=== PATIENT | male | born 1950 | race African-American/Black ===

== ENCOUNTER 2023-06-17 11:52 | Inpatient (IN) ==
--- NOTE | 2023-06-17 12:10 | Emergency Department Note ---
Impression & Plan UTI (urinary tract infection), Weakness, D-dimer, elevated ED Provider Note NAME: HANS [id number] JUAN AGE: 73 SEX: M : 1950 ARRIVES VIA: Ambulance INFORMANT: Patient ED PROVIDER(S): Donaldo Mendes DO CHIEF COMPLAINT: Chest pain HPI: Patient is a 73-year-old male who presents to the ER for chest pain which started in the left upper chest wall. Pain started this morning around 8 AM. Its only present with breathing. If he is not breathing he has no pain he also worsens when he pushes on it. He admits to a little bit of a runny nose. Denies any cough or congestion. No dysuria, urgency, or frequency. No other exacerbating or remitting factors. Patient was brought in by EMS and given aspirin and fluids as his blood pressures was a little low. ADDITIONAL HISTORY OBTAINED: Per HPI Chronic Medical/Social Conditions Affecting Care: Per HPI PAST MEDICAL HISTORY:See Below PAST SURGICAL HISTORY:See Below FAMILY HISTORY:See Below SOCIAL HISTORY:See Below HOME MEDICATIONS:See Below ALLERGIES:See Below VITALS:See Below PHYSICAL EXAMINATION: GENERAL: Sitting up in bed, alert, well appearing, well nourished, no distress, non-toxic EYE EXAM: normal conjunctiva. PERRL and EOM's grossly intact. OROPHARYNX: mucous membranes are moist NECK: supple, no nuchal rigidity, no adenopathy, non-tender CHEST: Reproducible left upper anterior chest wall pain just left of the sternum LUNGS: Clear to auscultation. Normal chest wall mechanics HEART: no murmurs, S1 normal and S2 normal ABDOMEN: abdomen soft, non-tender, normo-active bowel sounds, no masses, no rebound or guarding. UPPER EXTREMITIES: upper extremities are grossly normal. LOWER EXTREMITIES: No pitting edema. NEURO EXAM: Normal sensorium, cranial nerves II-XII grossly intact, normal speech, no gross weakness of arms, no gross weakness of legs. MEDICAL DECISION MAKING: Patient is a 73-year-old male who presents ER for the above-stated complaint. IV was established blood work was obtained. Additional history provided by EMS notes that he was complaining of chest pain. Labs show leukocytosis of 11,000. No significant anemia. D-dimer was elevated at 1000 as he had a pleuritic. BMP with slightly low CO2 at 20. Mag was low at 1.4. Troponin negative. Pro-Gigi elevated at 3. UA consistent with UTI. Viral panel was negative. Chest x-ray was unremarkable. He was given IV Rocephin. He was given IV fluids. Prior to arrival he was hypotensive in the 80s per EMS multiple times. This responded to IV fluids. CT angio was pending upon admission but per my review showed no obvious large central PEs. Patient's pressures rebounded with the fluids. He was discussed with the hospitalist for further evaluation of his UTI likely causing hypotension and reproducible chest pain. Consults/Care Managements Discussions: Per [facility] Triage Nursing notes reviewed. Limited review of prior medical records performed Vital Signs: reviewed and remarkable for fever Differential diagnosis: Differential diagnosis includes etiologies such as sepsis, UTI, pneumonia, metabolic, electrolyte abnormalities, cardiac sources, intracerebral event, toxicologic, neurological, as well as others were entertained. ER treatment provided: See below Diagnostics interpreted by me include EKG and cardiac monitoring as listed below: -Cardiac Monitoring: An order was placed for continuous cardiac monitoring. The monitor shows a rate of 80 with sinus rhythm. -ECG: Sinus rhythm rate 93 Normal axis No PVCs QTc 400 -Laboratory studies:Interpreted by me as stated above in MDM and shown below. Imaging studies: Xrays: As interpreted by me: Portable AP upright 1 view of the chest shows no focal CTs show: Per radiology Procedures: None Critical Care: None Past Med/Surg History Medical History Back pain Hepatitis C Dyslipidemia Asthma Cirrhosis of liver Arthritis Surgical History History of biopsy (03/30/21) Full-thickness incisional wedge skin biopsy was performed at bedside Dr. Reaves 03/30/2021 Status post total knee replacement Previous back surgery Family History Mother Cancer Social History Smoking Status: Current some day smoker Tobacco Type: E-cigarettes / Vaping Hx Alcohol Use: No Hx Substance Use: No Preferred Language: Chinese Communication Ability: Effective Beliefs That Will Affect Care: None Current Living Situation: Other Current Living Situation Comment: Longterm Feels Safe at Home: Yes Assistive Devices: Wheelchair Allergies Allergies Allergy/AdvReac Type Severity Reaction Status Date / Time pork derived (porcine) Allergy Unknown Unknown Verified 03/30/21 13:03 Pork/Porcine Containing Allergy Unknown ON SCI Verified 03/30/21 13:03 Products [facility] TW MED LIST Home Meds Home Medications Medication Instructions Recorded Confirmed cholecalciferol (vitamin D3) 25 1,000 unit PO DAILY 02/08/19 06/17/23 mcg (1,000 unit) chewable tablet gemfibrozil 600 mg tablet 600 mg PO BID 02/08/19 06/17/23 montelukast 10 mg tablet 10 mg PO HS 02/08/19 06/17/23 (Singulair) albuterol sulfate 90 mcg/actuation 2 puff inhalation Q6H PRN 03/30/21 06/17/23 aerosol inhaler Shortness Of Breath ciclesonide 160 mcg/actuation 2 puff inhalation BID 03/30/21 06/17/23 aerosol inhaler (Alvesco) lidocaine-prilocaine 2.5 %-2.5 % 2.5 g topical BID 03/30/21 06/17/23 topical cream escitalopram oxalate 5 mg tablet 5 mg PO DAILY 06/17/23 06/17/23 hydroxyzine pamoate 50 mg capsule 50 mg PO DAILY 06/17/23 06/17/23 ketotifen fumarate 0.025 % (0.035 1 drp ophthalmic (eye) Q8H PRN Eye 06/17/23 06/17/23 %) eye drops (Zaditor) Irritation ropinirole 1 mg tablet 1 mg PO HS 06/17/23 06/17/23 Results & Data (ED) Vital Signs Vital Signs - 24 hr 06/17/23 12:03 06/17/23 12:06 06/17/23 12:12 Temperature 38.2 C H Temperature Source Oral Pulse Rate 92 H 92 H Pulse Rate [Apical] Respiratory Rate 16 Blood Pressure 120/76 Blood Pressure [Left Arm] Blood Pressure Mean 90 Blood Pressure Mean [Left Arm] Pulse Oximetry 91 91 Oxygen Delivery Method Room Air Room Air Oxygen Flow Rate 0 Sepsis Recent Fever Within 48 Hours Yes Sepsis New/Unexplained Change in Mental Status No Sepsis Action Taken by Nursing No Action Required 06/17/23 12:16 06/17/23 13:56 06/17/23 14:47 Temperature Temperature Source Pulse Rate Pulse Rate [Apical] 88 82 81 Respiratory Rate 16 20 20 Blood Pressure Blood Pressure [Left Arm] 130/72 135/68 Blood Pressure Mean Blood Pressure Mean [Left Arm] 91 90 Pulse Oximetry 93 90 91 Oxygen Delivery Method Nasal Cannula Oxygen Flow Rate 2 Sepsis Recent Fever Within 48 Hours Sepsis New/Unexplained Change in Mental Status Sepsis Action Taken by Nursing Laboratory Data 06/17/23 12:05 06/17/23 12:57 Lab Results 06/17/23 06/17/23 06/17/23 Range/Units 12:03 12:05 12:32 WBC 11.41 H (4.8-10.8) K/ul RBC 4.45 L (4.70-6.10) M/uL Hgb 13.8 L (14.0-18.0) g/dl Hct 40.5 L (42.0-52.0) % MCV 91.0 (80.0-100.0) fL MCH 31.0 (25.0-34.0) pg MCHC 34.1 (32.0-36.0) g/dL RDW Std Deviation 41.5 (36.4-46.3) fL RDW Coeff of Mel 12.4 (11.5-14.5) % Plt Count 162 (130-400) K/uL MPV 10.9 (9.4-12.4) fL Immature Gran % (Auto) 0.4 % Neut % (Auto) 88.5 % Lymph % (Auto) 8.6 % [place] % (Auto) 2.0 % Eos % (Auto) 0.3 % Baso % (Auto) 0.2 % Neut # (Auto) 10.10 H (1.40-6.50) K/uL Lymph # (Auto) 0.98 L (1.20-3.40) K/uL [place] # (Auto) 0.23 (0.11-0.59) K/uL Eos # (Auto) 0.03 (0.00-0.50) K/uL Baso # (Auto) 0.02 (0.00-0.20) K/uL Immature Gran # (Auto) 0.05 (0.01-0.20) K/uL D-Dimer Cancelled Sodium TNP Potassium TNP Chloride 106 (98-107) mmol/L Carbon Dioxide 20 L (21-32) mmol/L Anion Gap TNP BUN 14 (6-23) mg/dl Creatinine 0.61 (0.6-1.4) mg/dl Est Cr Clr Drug Dosing 141.9 ml/min Est GFR ( Amer) 114.8 ml/min Est GFR (Non-Af Amer) 99.1 ml/min BUN/Creatinine Ratio 23.0 H (10-20) Glucose 87 (70-99(Fasting)) mg/dl Lactate 1.9 (0.4-2.0) mmol/L Calcium 8.4 L (8.6-10.3) mg/dl Magnesium TNP Total Bilirubin 0.7 (0.2-1.0) mg/dl Direct Bilirubin TNP AST TNP ALT 29 (7-52) U/L Alkaline Phosphatase 30 L (34-104) U/L Troponin I High Sens 13.9 (0-20) pg/ml Total Protein 7.1 (6.0-8.3) gm/dl Albumin 3.9 (3.4-5.0) gm/dl Procalcitonin Cancelled Urine Color Urine Appearance (Clear) Urine pH (4.5-7.5) Ur Specific [place] (1.000-1.030) Urine Protein (Negative) Urine Glucose (UA) (Negative) Urine Ketones (Negative) Urine Blood (Negative) Urine Nitrite (Negative) Urine Bilirubin (Negative) Urine Urobilinogen (Negative) Ur Leukocyte Esterase (Negative) Urine WBC (Auto) (0-5) /hpf Urine RBC (Auto) (0-2) /hpf U Hyaline Cast (Auto) (0-2) /lpf U Epithel Cells (Auto) (0-2) /hpf Urine Bacteria (Auto) (None Seen) Adenovirus (PCR) Not Detected (NotDetected) B. pertussis DNA (PCR) Not Detected (NotDetected) B.parapertussis DNA PCR Not Detected (NotDetected) C. pneumoniae DNA (PCR) Not Detected (NotDetected) Coronavirus OC43 (PCR) Not Detected (NotDetected) Coronavirus HKU1 (PCR) Not Detected (NotDetected) Coronavirus 229E (PCR) Not Detected (NotDetected) SARS-CoV-2 (PCR) Not Detected (NotDetected) Coronavirus NL63 (PCR) Not Detected (NotDetected) Human Metapneumovir PCR Not Detected (NotDetected) Influenza Type A (PCR) Not Detected (NotDetected) Influenza Type B (PCR) Not Detected (NotDetected) M. pneumoniae (PCR) Not Detected (NotDetected) Parainfluenza 1 (PCR) Not Detected (NotDetected) Parainfluenza 2 (PCR) Not Detected (NotDetected) Parainfluenza 3 (PCR) Not Detected (NotDetected) Parainfluenza 4 (PCR) Not Detected (NotDetected) RSV (PCR) Not Detected (NotDetected) Entero/Rhino (PCR) Not Detected (NotDetected) 06/17/23 06/17/23 06/17/23 Range/Units 12:57 13:03 13:55 WBC (4.8-10.8) K/ul RBC (4.70-6.10) M/uL Hgb (14.0-18.0) g/dl Hct (42.0-52.0) % MCV (80.0-100.0) fL MCH (25.0-34.0) pg MCHC (32.0-36.0) g/dL RDW Std Deviation (36.4-46.3) fL RDW Coeff of Mel (11.5-14.5) % Plt Count (130-400) K/uL MPV (9.4-12.4) fL Immature Gran % (Auto) % Neut % (Auto) % Lymph % (Auto) % [place] % (Auto) % Eos % (Auto) % Baso % (Auto) % Neut # (Auto) (1.40-6.50) K/uL Lymph # (Auto) (1.20-3.40) K/uL [place] # (Auto) (0.11-0.59) K/uL Eos # (Auto) (0.00-0.50) K/uL Baso # (Auto) (0.00-0.20) K/uL Immature Gran # (Auto) (0.01-0.20) K/uL D-Dimer 1050 H* Sodium 137 Potassium 4.5 Chloride (98-107) mmol/L Carbon Dioxide (21-32) mmol/L Anion Gap BUN (6-23) mg/dl Creatinine (0.6-1.4) mg/dl Est Cr Clr Drug Dosing ml/min Est GFR ( Amer) ml/min Est GFR (Non-Af Amer) ml/min BUN/Creatinine Ratio (10-20) Glucose (70-99(Fasting)) mg/dl Lactate (0.4-2.0) mmol/L Calcium (8.6-10.3) mg/dl Magnesium 1.4 L Total Bilirubin (0.2-1.0) mg/dl Direct Bilirubin 0.1 AST 24 ALT (7-52) U/L Alkaline Phosphatase (34-104) U/L Troponin I High Sens (0-20) pg/ml Total Protein (6.0-8.3) gm/dl Albumin (3.4-5.0) gm/dl Procalcitonin 3.12 H Urine Color Yellow Urine Appearance Clear (Clear) Urine pH 7.0 (4.5-7.5) Ur Specific [place] 1.009 (1.000-1.030) Urine Protein Negative (Negative) Urine Glucose (UA) Negative (Negative) Urine Ketones Negative (Negative) Urine Blood Negative (Negative) Urine Nitrite Negative (Negative) Urine Bilirubin Negative (Negative) Urine Urobilinogen Negative (Negative) Ur Leukocyte Esterase 2+ H (Negative) Urine WBC (Auto) 21-50 H (0-5) /hpf Urine RBC (Auto) 0-2 (0-2) /hpf U Hyaline Cast (Auto) 0-2 (0-2) /lpf U Epithel Cells (Auto) 0-2 (0-2) /hpf Urine Bacteria (Auto) 4+ H (None Seen) Adenovirus (PCR) (NotDetected) B. pertussis DNA (PCR) (NotDetected) B.parapertussis DNA PCR (NotDetected) C. pneumoniae DNA (PCR) (NotDetected) Coronavirus OC43 (PCR) (NotDetected) Coronavirus HKU1 (PCR) (NotDetected) Coronavirus 229E (PCR) (NotDetected) SARS-CoV-2 (PCR) (NotDetected) Coronavirus NL63 (PCR) (NotDetected) Human Metapneumovir PCR (NotDetected) Influenza Type A (PCR) (NotDetected) Influenza Type B (PCR) (NotDetected) M. pneumoniae (PCR) (NotDetected) Parainfluenza 1 (PCR) (NotDetected) Parainfluenza 2 (PCR) (NotDetected) Parainfluenza 3 (PCR) (NotDetected) Parainfluenza 4 (PCR) (NotDetected) RSV (PCR) (NotDetected) Entero/Rhino (PCR) (NotDetected) Administered Medications Discontinued Medications Acetaminophen (Acetaminophen 325 Mg Tab) 650 mg PO NOW STA Stop: 06/17/23 15:05 Last Admin: 06/17/23 15:37 Dose: 650 mg Documented By: CARLEE Sodium Chloride (Nss) 1,000 mls @ 999 mls/hr IV .Q1H1M ONE Stop: 06/17/23 13:09 Last Infusion: 06/17/23 16:17 Dose: Infused Documented By: Admin: 06/17/23 12:15 Dose: 999 mls/hr Documented By: KV Ioversol (Optiray 320 125ml) 117 ml IV ONCE ONE Stop: 06/17/23 16:46 Last Admin: 06/17/23 16:45 Dose: 117 ml Documented By: SKYLER Imaging Data Radiologist's Impression: Chest X-Ray 06/17/23 12:03 XR chest 1V portable CLINICAL HISTORY: Sepsis TECHNIQUE: Single frontal radiograph of the chest was obtained. Comparison: Comparison is made to chest radiograph 02/09/2022 FINDINGS: No lines and tubes are seen. The cardiomediastinal silhouette is normal. Elevation of the right hemidiaphragm is seen. No evidence of pleural effusion or pneumothorax. IMPRESSION: No acute chest disease. ACT 112: Negative or not required by law. Electronically signed by: Mark Bansal M.D. 06/17/2023 1:04 PM Discharge Plan Visit Data Chief Complaint: Cardiac Assessment Stated Complaint: CHEST PAIN/HYPOTENSIVE ED Provider: Donaldo Mendes Discharge Problem: UTI (urinary tract infection), Weakness, D-dimer, elevated Forms Stand Alone Forms: [facility] Prescriptions Prescriptions: No Action albuterol sulfate 90 mcg/actuation HFA aerosol inhaler 2 puff inhalation Q6H PRN (Reason: Shortness Of Breath) lidocaine-prilocaine 2.5-2.5 % cream 2.5 g topical BID Alvesco 160 mcg/actuation HFA aerosol inhaler 2 puff inhalation BID gemfibrozil 600 mg Tablet 600 mg PO BID montelukast [Singulair] 10 mg Tablet 10 mg PO HS cholecalciferol (vitamin D3) 1,000 unit Tablet,Chewable 1,000 unit PO DAILY escitalopram oxalate 5 mg Tablet 5 mg PO DAILY ropinirole 1 mg Tablet 1 mg PO HS Rx Instructions: administer 1-3 hours before bedtime ketotifen fumarate [Zaditor] 0.025 % (0.035 %) Drops 1 drp OPHTHALMIC (EYE) Q8H PRN (Reason: Eye Irritation) Rx Instructions: do not exceed 2 doses in a 24 hour period hydroxyzine pamoate 50 mg Capsule 50 mg PO DAILY Referrals Referrals: Brayden BACK [Primary Care Provider] - Discharge Problem: UTI (urinary tract infection) Qualifiers: Urinary tract infection type: site unspecified Hematuria presence: without hematuria Qualified Code(s): N39.0 - Urinary tract infection, site not specified
[2023-06-17] MEDS: SODIUM CHLORIDE 0.9% 1,000 ML IV ONE ×2 (12:15→17:04)
[2023-06-17 12:37] LABS: Basophils # (auto) 0.02 K/uL (0.00-0.20); Basophils % (auto) 0.2 %; Eosinophils # (auto) 0.03 K/uL (0.00-0.50); Eosinophils % (auto) 0.3 %; Hematocrit (blood only) 40.5 % (42.0-52.0); Hemoglobin 13.8 g/dl (14.0-18.0); Immature Granulocytes # (auto) 0.05 K/uL (0.01-0.20); Immature Granulocytes % (auto) 0.4 %; Lymphocytes # (auto) 0.98 K/uL (1.20-3.40); Lymphocytes % (auto) 8.6 %; Mean Corpuscular Hgb Conc 34.1 g/dL (32.0-36.0); Mean Platelet Volume 10.9 fL (9.4-12.4); Monocytes # (auto) 0.23 K/uL (0.11-0.59); Neutrophils % (auto) 88.5 %; Platelet Count 162 K/uL (130-400); RDW Coefficient of Variation 12.4 % (11.5-14.5); RDW Standard Deviation 41.5 fL (36.4-46.3); Red Blood Count 4.45 M/uL (4.70-6.10); White Blood Count 11.41 K/ul (4.8-10.8)
[2023-06-17 12:52] LABS: Alanine Aminotransferase 29 U/L (7-52); Albumin Level 3.9 gm/dl (3.4-5.0); Alkaline Phosphatase 30 U/L (34-104); Bilirubin,Total 0.7 mg/dl (0.2-1.0); Blood Urea Nitrogen 14 mg/dl (6-23); Calcium 8.4 mg/dl (8.6-10.3); Carbon Dioxide 20 mmol/L (21-32); Chloride 106 mmol/L (98-107); Creatinine Clr Calc Pharmacy 141.9 ml/min; Est GFR (African American) 114.8 ml/min; Est GFR (Non-African American) 99.1 ml/min; Glucose 87 mg/dl (70-99(Fasting)); Total Protein 7.1 gm/dl (6.0-8.3)
[2023-06-17 12:54] LABS: Troponin I High Sensitivity 13.9 pg/ml (0-20)
--- NOTE | 2023-06-17 13:05 | XRay Report ---
XR chest 1V portable CLINICAL HISTORY: Sepsis TECHNIQUE: Single frontal radiograph of the chest was obtained. Comparison: Comparison is made to chest radiograph 02/09/2022 FINDINGS: No lines and tubes are seen. The cardiomediastinal silhouette is normal. Elevation of the right hemid iaphragm is seen. No evidence of pleural effusion or pneumothorax. IMPRESSION: No acute chest disease. ACT 112: Negative or not required by law. Electronically signed by: Mark Bansal M.D. 06/17/2023 1:04 PM
[2023-06-17 13:14] LABS: Adenovirus PCR Not Detected (NotDetected); Bordetella parapertussis PCR Not Detected (NotDetected); Bordetella pertussis PCR Not Detected (NotDetected); Chlamydia pneumoniae PCR Not Detected (NotDetected); Coronavirus 229E PCR Not Detected (NotDetected); Coronavirus CoV-2 (COVID19)PCR Not Detected (NotDetected); Coronavirus HKU1 PCR Not Detected (NotDetected); Coronavirus NL63 PCR Not Detected (NotDetected); Coronavirus OC43PCR Not Detected (NotDetected); Human Metapneumovirus PCR Not Detected (NotDetected); Influenza A PCR Not Detected (NotDetected); Influenza B PCR Not Detected (NotDetected); Mycoplasma pneumoniae PCR Not Detected (NotDetected); Parainfluenza Virus 1 PCR Not Detected (NotDetected); Parainfluenza Virus 2 PCR Not Detected (NotDetected); Parainfluenza Virus 3 PCR Not Detected (NotDetected); Parainfluenza Virus 4 PCR Not Detected (NotDetected); Respiratory Syncytial VirusPCR Not Detected (NotDetected); Rhinovirus/Enterovirus PCR Not Detected (NotDetected)
[2023-06-17 13:48] LABS: Bilirubin Direct 0.1 mg/dl (0-0.2); Magnesium 1.4 mg/dl (1.7-2.4); Potassium 4.5 mmol/L (3.5-5.1)
[2023-06-17 13:57] LABS: D Dimer 1050 ug/L FEU (0-500)
[2023-06-17 14:17] LABS: Appearance Urine Clear (Clear); Bacteria Urine Automated 4+ (None Seen); Bilirubin Urine Negative (Negative); Blood Urine Negative (Negative); Cast Urine Automated 0-2 /lpf (0-2); Color Urine Yellow; Epithelial Cell Urine Auto 0-2 /hpf (0-2); Glucose Urine UA Negative (Negative); Ketones Urine Negative (Negative); Leukocyte Esterase Urine 2+ (Negative); Nitrite Urine Negative (Negative); Protein Urine Negative (Negative); RBC Urine Automated 0-2 /hpf (0-2); Specific Gravity Urine 1.009 (1.000-1.030); Urobilinogen Urine Negative (Negative); WBC Urine Automated 21-50 /hpf (0-5)
[2023-06-17] MEDS: ACETAMINOPHEN 325 MG TAB PO STA (15:37)
--- NOTE | 2023-06-17 16:26 | History & Physical Report ---
Date of Service June 17, 2023 Assessment & Plan (1) Sepsis: (2) UTI (urinary tract infection): (3) Chest pain: Plan: This is a 73 year old M who is incarcerated at [facility] with hx of Seizure d/o, asthma, cirrhosis of liver, hepatitis C, HLD who presents to ED 2/2 chest pain that started this morning. Sepsis UTI Admit to PCU Patient met sepsis criteria in setting of fever and tachycardia , T max 38.2 blood and urine cultures were obtained Initially patient was hypotensive with EMS, but has been normotensive since arrival Lactic acid normal, procalcitonin elevated at 3 He received broad-spectrum IV Rocephin in ED Continue 2 g Rocephin daily Await blood and urine cultures continue IVF for additional 1 L Chest pain His presenting complaints to hospital is chest pain It is reproducible, possible MSK vs Anxiety Initial troponin unremarkable, EKG without ST change Elevated D-dimer, chest CTA pending High risk for PE as he is mostly wheelchair-bound will repeat trop, cycle PTSD Anxiety Continue escitalopram and hydroxyzine Patient states he has had inceased in anx/PTSD and he has been receiving treatment for this, he does tend to get chest pain with anxiety continue current meds low threshold for psych consult Asthma no acute exac continue inhaler Hypomagnesemia mag 1.4 replace DVT ppx: SQ Lovenox Dispo: PCU FULL CODE PCP: Hamzah BACK Pt was seen and examined in collaboration with Dr. Fuentes, please see addendum A total of 76 minutes was spent coordinating, documenting, and providing care for this patient excluding time spent in the performance of separately billed services. This included personally viewing all current laboratories and imaging studies, medication reconciliation, outpatient chart review, and discussion with specialists. History of Present Illness Chief Complaint: Chest pain Primary Care Provider: NAZANIN Hamzah This is a 73 year old M who is incarcerated at [facility] with hx of Seizure d/o, asthma, cirrhosis of liver, hepatitis C, HLD who presents to ED 2/2 chest pain that started this morning. His pain is substernal, nonradiating, worse with inspiration and made better with resting. He has hx of anxiety/PTSD which is currently much worse and he is being treated for this in the facility and he does get chest pain with that. He feels this is a different kind of chest pain. He also c/o feeling chilled and aches all over this morning. He also complains of increased urinary frequency and urgency. He denies any documented fever, URI symptoms, cough, hemoptysis, nausea, vomiting, abdominal pain, hematuria, melena or hematochezia, dysuria. He does state that he had a UTI approximately 3 years ago and at that time he had dysuria and urgency. He denied any chest pain with this. His appetite has otherwise been stable. According to ED provider patient was hypotensive upon EMS arrival. He was resuscitated with fluid boluses. Upon my evaluation he was hemodynamically stable. He did meet sepsis criteria secondary to fever and tachycardia. Blood and urine cultures were obtained. He did receive IV fluids and IV vancomycin. He did have elevated D-dimer and therefore CTA was ordered. Allergies Allergy/AdvReac Type Severity Reaction Status Date / Time pork derived (porcine) Allergy Unknown Unknown Verified 03/30/21 13:03 Pork/Porcine Containing Allergy Unknown ON SCI Verified 03/30/21 13:03 Products [facility] MED LIST No Known Drug Allergies Allergy Unknown Unverified 06/17/23 16:53 Home Medications Medication Instructions Recorded Confirmed Type cholecalciferol (vitamin D3) 25 1,000 unit PO DAILY 02/08/19 06/17/23 History mcg (1,000 unit) chewable tablet gemfibrozil 600 mg tablet 600 mg PO BID 02/08/19 06/17/23 History montelukast 10 mg tablet 10 mg PO HS 02/08/19 06/17/23 History (Singulair) albuterol sulfate 90 mcg/actuation 2 puff inhalation Q6H PRN 03/30/21 06/17/23 History aerosol inhaler Shortness Of Breath ciclesonide 160 mcg/actuation 2 puff inhalation BID 03/30/21 06/17/23 History aerosol inhaler (Alvesco) lidocaine-prilocaine 2.5 %-2.5 % 2.5 g topical BID 03/30/21 06/17/23 History topical cream escitalopram oxalate 5 mg tablet 5 mg PO DAILY 06/17/23 06/17/23 History hydroxyzine pamoate 50 mg capsule 50 mg PO DAILY 06/17/23 06/17/23 History ketotifen fumarate 0.025 % (0.035 1 drp ophthalmic (eye) Q8H PRN Eye 06/17/23 06/17/23 History %) eye drops (Zaditor) Irritation ropinirole 1 mg tablet 1 mg PO HS 06/17/23 06/17/23 History Past Med/Surg History Medical History Back pain Hepatitis C Dyslipidemia Asthma Cirrhosis of liver Arthritis Surgical History History of biopsy (03/30/21) Full-thickness incisional wedge skin biopsy was performed at bedside Dr. Reaves 03/30/2021 Status post total knee replacement Previous back surgery Family History Mother Cancer Social History Smoking Status: Current some day smoker Tobacco Type: Cigarettes and E-cigarettes / Vaping Second Hand Exposure: No; Do You Dip or Chew Tobacco: No; Tobacco Cessation Education Requested by Patient: No Hx Alcohol Use: No Hx Substance Use: No Preferred Language: Ivorian Communication Ability: Effective Parking Worker Required: No Beliefs That Will Affect Care: Spiritual Current Living Situation: Other Current Living Situation Comment: [facility] Other Information That Helps Us Care for You: No Feels Safe at Home: Yes Assistive Devices: Denture - Upper, Denture - Lower, Glasses, Walker and Wheelchair Assistive Devices Comment: All left at [facility] Review of Systems Review of Systems: All systems reviewed & are unremarkable except as noted in HPI & below Physical Exam Physical Exam: Constitutional: WD/WN, Male, vitals as above, NAD, sitting up in bed, pleasant, conversing easily Head: Normocephalic, Atraumatic Eyes: PERRL, conjunctivae normal, anicteric sclerae ENMT: external ear and nose normal, oropharynx normal Neck: trachea midline, no thyromegaly normal visual inspection Respiratory: normal respiratory effort, lungs clear to auscultation, no wheeze, rales, rhonchi. Normal insp/exp effort, no accessory muscle use Cardiovascular: RRR, no murmur, no edema Vessels: no JVD or carotid bruit Chest: normal inspection of chest Abdomen: normal bowel sounds, soft, nontender, no hepatosplenomegaly Musculoskeletal: no cyanosis or clubbing, extremities motor strength 5/5 Skin: no rashes, warm and dry normal turgor Neurologic: PERRL, EOMI, accommodation nl, no face palsy, no dysarthria CN's II-XI intact bilaterally and moves all extremities Psychiatric: A+Ox3, euthymic affect Lymphatic: no cervical or axillary lymphadenopathy : deferred Results & Data Results & Data Vital Signs (Past 12 Hours) Vital Signs Temp Pulse Pulse Resp BP BP Pulse Ox 06/17/23 14:47 81 20 135/68 91 06/17/23 13:56 82 20 130/72 90 06/17/23 12:16 88 16 93 06/17/23 12:12 91 06/17/23 12:06 38.2 C H 92 H 16 120/76 91 06/17/23 12:03 92 H O2 Del Method O2 Flow Rate 06/17/23 14:47 06/17/23 13:56 06/17/23 12:16 Nasal Cannula 2 06/17/23 12:12 Room Air 0 06/17/23 12:06 Room Air 06/17/23 12:03 Diagnostic Findings Chest X-Ray 06/17/23 12:03 XR chest 1V portable CLINICAL HISTORY: Sepsis TECHNIQUE: Single frontal radiograph of the chest was obtained. Comparison: Comparison is made to chest radiograph 02/09/2022 FINDINGS: No lines and tubes are seen. The cardiomediastinal silhouette is normal. Elevation of the right hemidiaphragm is seen. No evidence of pleural effusion or pneumothorax. IMPRESSION: No acute chest disease. ACT 112: Negative or not required by law. Electronically signed by: Mark Bansal M.D. 06/17/2023 1:04 PM Medications Administered Medication List Discontinued Medications Acetaminophen (Acetaminophen 325 Mg Tab) 650 mg PO NOW STA Stop: 06/17/23 15:05 Last Admin: 06/17/23 15:37 Dose: 650 mg Documented By: CARLEE Sodium Chloride (Nss) 1,000 mls @ 999 mls/hr IV .Q1H1M ONE Stop: 06/17/23 13:09 Last Infusion: 06/17/23 16:17 Dose: Infused Documented By: Admin: 06/17/23 12:15 Dose: 999 mls/hr Documented By: JULIA Sodium Chloride (Nss) 1,000 mls @ 999 mls/hr IV .Q1H1M ONE Stop: 06/17/23 16:04 Last Admin: 06/17/23 17:04 Dose: 999 mls/hr Documented By: CARLEE Ceftriaxone Sodium (Rocephin) 2,000 mg in 50 mls @ 100 mls/hr IV NOW STA Stop: 06/17/23 15:33 Last Admin: 06/17/23 17:03 Dose: 100 mls/hr Documented By: CARLEE Ioversol (Optiray 320 125ml) 117 ml IV ONCE ONE Stop: 06/17/23 16:46 Last Admin: 06/17/23 16:45 Dose: 117 ml Documented By: SKYLER ECG Rate (beats per minute): 93 Rhythm: normal sinus Additional Comments: I have independently reviewed and interpreted patient's admitting EKG which revealed: 93 NSR, RBBB, no st t wave change COVID-19 Results Results COVID-19 Adm Lab Results: RBC 4.45 M/uL (4.70-6.10) L 06/17/23 WBC 11.41 K/ul (4.8-10.8) H 06/17/23 Hgb 13.8 g/dl (14.0-18.0) L 06/17/23 Hct 40.5 % (42.0-52.0) L 06/17/23 Plt Count 162 K/uL (130-400) 06/17/23 Neutrophils (%) (Auto) 88.5 % 06/17/23 Lymphocytes (%) (Auto) 8.6 % 06/17/23 Monocytes # (Auto) 0.23 K/uL (0.11-0.59) 06/17/23 Eosinophils # (Auto) 0.03 K/uL (0.00-0.50) 06/17/23 Immature Granulocyte % (Auto) 0.4 % 06/17/23 Neutrophils # (Auto) 10.10 K/uL (1.40-6.50) H 06/17/23 Lymphocytes # (Auto) 0.98 K/uL (1.20-3.40) L 06/17/23 Monocytes # (Auto) 0.23 K/uL (0.11-0.59) 06/17/23 Eosinophils # (Auto) 0.03 K/uL (0.00-0.50) 06/17/23 Basophils # (Auto) 0.02 K/uL (0.00-0.20) 06/17/23 Immature Granulocyte # (Auto) 0.05 K/uL (0.01-0.20) 4 Na 137 mmol/L (136-145) 06/17/23 K 4.5 mmol/L (3.5-5.1) 06/17/23 Cl 106 mmol/L (98-107) 06/17/23 CO2 20 mmol/L (21-32) L 06/17/23 Anion Gap TNP 06/17/23 BUN 14 mg/dl (6-23) 06/17/23 Creatinine 0.61 mg/dl (0.6-1.4) 06/17/23 BUN/Creatinine Ratio 23.0 (10-20) H 06/17/23 Glucose Level 87 mg/dl (70-99(Fasting)) 06/17/23 Ca 8.4 mg/dl (8.6-10.3) L 06/17/23 Total Bilirubin 0.7 mg/dl (0.2-1.0) 06/17/23 Direct Bilirubin 0.1 mg/dl (0-0.2) 06/17/23 AST/SGOT 24 U/L (13-39) 06/17/23 ALT/SGPT 29 U/L (7-52) 06/17/23 Alkaline Phosphatase 30 U/L (34-104) L 06/17/23 Total Protein 7.1 gm/dl (6.0-8.3) 06/17/23 Albumin 3.9 gm/dl (3.4-5.0) 06/17/23 Procalcitonin 3.12 ng/ml (0-0.5) H 06/17/23 D-Dimer 1050 ug/L FEU (0-500) H* 06/17/23 Adenovirus (PCR) Not Detected (NotDetected) 06/17/23 B. parapertussis DNA (PCR) Not Detected (NotDetected) 08/04 B. pertussis DNA (PCR) Not Detected (NotDetected) 06/17/23 C. pneumoniae DNA (PCR) Not Detected (NotDetected) 4 Coronavirus Type OC43 (PCR) Not Detected (NotDetected) 08/04 Coronavirus Type HKU1 (PCR) Not Detected (NotDetected) 08/04 Coronavirus Type 229E (PCR) Not Detected (NotDetected) 08/04 COVID-19 PCR Not Detected (NotDetected) 06/17/23 Coronavirus Type NL63 (PCR) Not Detected (NotDetected) 08/04 Human Metapneumovirus (PCR) Not Detected (NotDetected) 08/04 Influenza Virus Type A (PCR) Not Detected (NotDetected) Influenza Virus Type B (PCR) Not Detected (NotDetected) M. pneumoniae (PCR) Not Detected (NotDetected) 06/17/23 Parainfluenza Type 1 (PCR) Not Detected (NotDetected) 08/04 Parainfluenza Type 2 (PCR) Not Detected (NotDetected) 08/04 Parainfluenza Type 3 (PCR) Not Detected (NotDetected) 08/04 Parainfluenza Type 4 (PCR) Not Detected (NotDetected) 08/04 RSV (PCR) Not Detected (NotDetected) 06/17/23 Enterovirus/Rhinovirus (PCR) Not Detected (NotDetected) Chest X-Ray 06/17/23 Code Status & VTE Plan Code Status FULL CODE VTE Prophylaxis Plan VTE Prophylaxis will be ordered: Yes Supervising Physician Co-Signing Physician Notes I have seen and examined the patient and have discussed the case with the provider above. I have reviewed the advanced practitioner's documentation, and I agree with, and take responsibility for that plan of care. 73 yo M with sepsis 2/2 UTI with symptoms beginning today. Also with chest pain that is substernal and comes and goes at rest. No ekg changes to suggest acute ischemia and his HS trop is negative. Chest pain is also reproducible to palpation and better with pain meds. Doubt ACS. Physical exam is unremarkable. Appears to be adequately resuscitated. Cont broad spectrum abx pending culture results and clinical improvement. DO Alfredo (2) UTI (urinary tract infection) Hematuria presence: without hematuria Urinary tract infection type: site unspecified Qualified Code(s): N39.0 - Urinary tract infection, site not specified
[2023-06-17] MEDS: OPTIRAY 320 125ml IV ONE (16:45)
[2023-06-17] MEDS: cefTRIAXone SODIUM 2,000 MG/50 ML BAG IV STA (17:03)
--- NOTE | 2023-06-17 17:17 | CT Scan Report ---
CT angio chest PE protocol CLINICAL HISTORY: PE TECHNIQUE: Multidetector row helical CT of the chest was performed with angiographic protocol. Leyva l and sagittal reformations were obtained. Coronal and sagittal MIPS were obtained from the axial patricia a set and were submitted for review. Automated dose lowering techniques and/or adjustment according to patient size were utilized for this exam. CT DOSE: 1000.82 mGy.cm Comparison: Comparison is made to chest radiograph 06/17/2023 FINDINGS: Lungs and pleura: Emphysema is seen. There is atelectasis in the right greater than left lung base. Heart and pericardium: Heart size is normal. No pericardial effusion. Vessels: No evidence of pulmonary embolism. Mediastinum and baudilio: Unremarkable. Chest wall and lower neck: Unremarkable. Abdomen: Nodularity of the liver is compatible with cirrhosis. A gallstone is seen. Duodenal divertic ulum is noted. Bones: Degenerative changes in the thoracic spine. IMPRESSION: 1. No acute abnormality and in particular no evidence of pulmonary embolus. 2. Partial visualization of cirrhosis and cholelithiasis. ACT 112: Negative or not required by law. Electronically signed by: Mark Bansal M.D. 06/17/2023 5:15 PM
[2023-06-17] MEDS: MAGNESIUM SULFATE / D5W 1 GM/100 ML BAG IV STA ×2 (17:55→18:34)
[2023-06-17] MEDS ORDERED: POLYETHYLENE (MIRALAX) 17 GM PACK PO PRN (18:31)
[2023-06-17] MEDS ORDERED: ONDANSETRON INJ 2 MG/ML 2 ML VIAL IV PRN (18:31)
[2023-06-17] MEDS: SODIUM CHLORIDE 0.9% 1,000 ML IV SCH (19:37)
[2023-06-17] MEDS: MONTELUKAST SODIUM 10 MG TABLET PO SCH (19:38)
[2023-06-17] MEDS: gemfibroziL 600 MG TAB PO SCH (19:38)
[2023-06-17] MEDS: hydrOXYzine HCl 25 MG TAB PO SCH (19:39)
[2023-06-17] MEDS: ENOXAPARIN INJ 40 MG/0.4 ML SYR SQ SCH (19:40)
[2023-06-17] MEDS: ACETAMINOPHEN 325 MG TAB PO PRN (21:14)
[2023-06-17] MEDS: rOPINIRole HCL 1 MG TABLET PO SCH (21:15)
[2023-06-17] MEDS: FLUTICASONE FUROATE 200MCG 14 PUFFS/INHALER INH SCH (21:15)
[2023-06-18] MEDS: ALUMINUM/MAGNESIUM SUSP 30 ML UDC PO PRN (00:42)
[2023-06-18 02:43] LABS: A calco-baum cmplx NotReported Not Detected (NotDetected); Bact fragilis Not Reported Not Detected (NotDetected); Blood Culture Id Panel See PCR Comment (NotDetected); C auris Not Reported Not Detected (NotDetected); CTX-M Resistant Gene Not Detected (NotDetected); Calbicans Not Reported Not Detected (NotDetected); Candida glabrata Not Reported Not Detected (NotDetected); Candida krusei Not Reported Not Detected (NotDetected); Cneoformans/gatti Not Reported Not Detected (NotDetected); Cparapsilosis Not Reported Not Detected (NotDetected); E cloacae compx Not Reported Not Detected (NotDetected); Efaecalis Not Reported Not Detected (NotDetected); Efaecium Not Reported Not Detected (NotDetected); Enterobacterales DETECTED (NotDetected); Enterobacterales Not Reported DETECTED (NotDetected); Escherichia coli Not Reported Not Detected (NotDetected); H influenzae Not Reported Not Detected (NotDetected); IMP Resistant Gene Not Detected (NotDetected); K aerogenes Not Reported Not Detected (NotDetected); KPC Resistant Gene Not Detected (NotDetected); Koxytoca Not Reported DETECTED (NotDetected); Kpneumoniae grp Not Reported Not Detected (NotDetected); Lmonocyt Not Reported Not Detected (NotDetected); N meningitidis Not Reported Not Detected (NotDetected); NDM Resistant Gene Not Detected (NotDetected); OXA 48 Like Resistant Gene Not Detected (NotDetected); P aeruginosa Not Reported Not Detected (NotDetected); Proteus spp Not Reported Not Detected (NotDetected); Salmonella spp Not Reported Not Detected (NotDetected); Smarcescens Not Reported Not Detected (NotDetected); Staph lugdunensis Not Reported Not Detected (NotDetected); Staph spp. Not Reported Not Detected (NotDetected); Staphaureus Not Reported Not Detected (NotDetected); Staphepi Not Reported Not Detected (NotDetected); Stenmaltophilia Not Reported Not Detected (NotDetected); Strep agal(GrpB) Not Reported Not Detected (NotDetected); Strep pneum Not Reported Not Detected (NotDetected); Strep pyog (GrpA) Not Reported Not Detected (NotDetected); Strep spp Not Reported Not Detected (NotDetected); VIM Resistant Gene Not Detected (NotDetected); mcr-1 Colistin Resistant Gene Not Detected (NotDetected)
[2023-06-18] MEDS: MoRPHine SULFATE 2 MG/ML CARP IV PRN (04:57)
--- NOTE | 2023-06-18 06:17 | Electrocardiogram Report ---
Test Reason : Blood Pressure : / mmHG Vent. Rate : 093 BPM Atrial Rate : 093 BPM P-R Int : 178 ms QRS Dur : 082 ms QT Int : 322 ms P-R-T Axes : 066 040 039 degrees QTc Int : 400 ms Normal sinus rhythm Low voltage QRS Borderline ECG When compared with ECG of 09-FEB-2022 15:00, Nonspecific T wave abnormality now evident in Anterior leads Confirmed by Jamal Rowan ([id number]) on 06/18/2023 6:17:40 AM Referred By: Hamzah BACK Confirmed By:Jamal Rowan
[2023-06-18 07:21] LABS: Hematocrit (blood only) 36.5 % (42.0-52.0); Hemoglobin 12.1 g/dl (14.0-18.0); Mean Corpuscular Hemoglobin 30.7 pg (25.0-34.0); Mean Corpuscular Hgb Conc 33.2 g/dL (32.0-36.0); Mean Corpuscular Volume 92.6 fL (80.0-100.0); Mean Platelet Volume 10.9 fL (9.4-12.4); Platelet Count 121 K/uL (130-400); RDW Coefficient of Variation 12.7 % (11.5-14.5); RDW Standard Deviation 43.4 fL (36.4-46.3); Red Blood Count 3.94 M/uL (4.70-6.10); White Blood Count 8.11 K/ul (4.8-10.8)
[2023-06-18 08:02] LABS: BUN Creatinine Ratio 26.2 (10-20); Calcium 7.6 mg/dl (8.6-10.3); Creatinine Clr Calc Pharmacy 130.5 ml/min; Est GFR (African American) 111.9 ml/min; Est GFR (Non-African American) 96.5 ml/min; Magnesium 1.7 mg/dl (1.7-2.4); Potassium 3.9 mmol/L (3.5-5.1)
[2023-06-18] MEDS: CHOLECALCIFEROL 25 MCG (1000 UNITS) TAB PO SCH (08:18)
[2023-06-18 08:59] LABS: Troponin I High Sensitivity 26.7 pg/ml (0-20)
[2023-06-18] MEDS: ESCITALOPRAM OXALATE 10 MG TAB PO SCH (09:49)
[2023-06-18] MEDS: cefTRIAXone SODIUM 2,000 MG/50 ML BAG IV SCH (17:32)
--- NOTE | 2023-06-18 18:21 | Hospitalist Progress Note ---
Date of Service June 18, 2023 Assessment & Plan (1) Sepsis: (2) UTI (urinary tract infection): (3) Chest pain: Plan: per admitting service notes with addendum: This is a 73 year old M who is incarcerated at [facility] with hx of Seizure d/o, asthma, cirrhosis of liver, hepatitis C, HLD who presents to ED 2/2 chest pain that started this morning. Sepsis UTI Admit to PCU Patient met sepsis criteria in setting of fever and tachycardia , T max 38.2 blood and urine cultures were obtained Initially patient was hypotensive with EMS, but has been normotensive since arrival Lactic acid normal, procalcitonin elevated at 3 He received broad-spectrum IV Rocephin in ED Continue 2 g Rocephin daily Await blood and urine cultures continue IVF for additional 1 L 5/ blood cultures: gram negative bacilli Urine culture: gram negative bacilli continue IV Ceftri CT abd/pelvis ordered to r/o Nephrolithiasis repeat blood culture tomorrow Chest pain ACS ruled out His presenting complaints to hospital is chest pain It is reproducible, possible MSK vs Anxiety Initial troponin unremarkable, EKG without ST change Elevated D-dimer, chest CTA pending High risk for PE as he is mostly wheelchair-bound will repeat trop, cycle 06/17 trop remained in the 20s EKG no ischemia CT chest: no PE resolved PTSD Anxiety Continue escitalopram and hydroxyzine Patient states he has had inceased in anx/PTSD and he has been receiving treatment for this, he does tend to get chest pain with anxiety continue current meds Asthma no acute exac continue inhaler Hypomagnesemia mag 1.4 replace DVT ppx: SQ Lovenox Dispo: PCU FULL CODE PCP: [facility] Admission and Anticipated Discharge Date Admission Date: June 17, 2023 Subjective ff up for UTI, bacteremia, etc seen resting in bed, comfortable states he feels improved compared to yesterday chest pain resolved weakness, nausea, chills improving no problems with urination no abdominal pain, flank or back pain no other symptoms Review of Systems Review of Systems: all noted and negative except for above Physical Exam Physical Exam: General- oriented x 3, not in distress, speaks in sentences with no effort or accessory muscle use Eyes- anicteric Neck- no JVD Lungs- clear breath sounds bilaterally, no rales/wheezes Heart- normal rate, regular rhythm; no murmurs Abdomen- normal bowel sounds, nondistended, soft, no tenderness no CVA tenderness Extremities- no pretibial edema, no calf tenderness Neuro- alert, oriented x 3; no gross focal neurologic deficits Skin- warm & dry Results & Data Results & Data Vital Signs (Past 12 Hours) Vital Signs Temp Pulse Resp BP Pulse Ox O2 Del Method 06/18/23 15:42 37.4 C 74 19 128/71 90 Room Air 06/18/23 10:53 36.9 C 81 19 116/67 91 Room Air 06/18/23 07:44 36.7 C 69 19 121/54 L 90 Room Air all noted and reviewed including below (2) UTI (urinary tract infection) Hematuria presence: without hematuria Urinary tract infection type: site unspecified Qualified Code(s): N39.0 - Urinary tract infection, site not specified
[2023-06-18] MEDS: SODIUM CHLORIDE 0.9% 1,000 ML IV SCH (18:35)
[2023-06-18] MEDS: MAGNESIUM HYDROXIDE SUSP 30 ML UDC PO PRN (20:40)
[2023-06-18] MEDS: hydrOXYzine HCl 25 MG TAB PO SCH (20:57)
--- NOTE | 2023-06-18 21:17 | CT Scan Report ---
Exam(s): CT ABDOMEN + PELVIS Without Contrast EXAM: CT Abdomen and Pelvis Without Intravenous Contrast CLINICAL HISTORY: Reason for exam: UTI, sepsis, r/o nephrolithiasis. TECHNIQUE: Axial computed tomography images of the abdomen and pelvis without intravenous contrast. CTDI is 27.88 mGy and DLP is 1730.22 mGy-cm. Automated exposure control was utilized for the study. A dose lowering technique was utilized adhering to the principles of ALARA. COMPARISON: None. FINDINGS: Lung bases: Right lower lobe consolidation with air bronchograms and suggestion of super imposed scarring. Mild left lower lobe atelectasis. Pleural space: Trace left-sided pleural effusion. Heart: Unremarkable. No cardiomegaly. No significant pericardial effusion. Normal cardiac size with coronary artery calcifications. ABDOMEN: Liver: Possible mild diffuse fatty liver. Tiny low-attenuation structures within the liver, largest measuring 6 mm, too small to adequately characterize and likely liver cyst. Otherwise normal liver. Gallbladder and bile ducts: Gallstone measuring 2.2 cm in the gallbladder neck region. Otherwise unremarkable gallbladder. No ductal dilation. Pancreas: Unremarkable. No ductal dilation. Spleen: Unremarkable. No splenomegaly. Adrenals: Unremarkable. No mass. Kidneys and ureters: Mild bilateral perinephric stranding. Multiple low-attenuation structures within the kidneys, largest on the right measuring 1.2 cm and largest on the left measuring 2.7 cm compatible with simple renal cyst. No further follow-up imaging recommended. Remainder bilateral kidneys unremarkable with no stone or hydronephrosis. Stomach and bowel: Unremarkable. No obstruction. No mucosal thickening. PELVIS: Appendix: Normal appendix. Bladder: There is high density fluid within the urinary bladder which may be due to previous IV contrast administration study. No stones. Reproductive: Unremarkable as visualized. ABDOMEN and PELVIS: Intraperitoneal space: Unremarkable. No free air. No significant fluid collection. Bones/joints: Multilevel degenerative disease of the spine, bilateral SI joints and hips. No distinct acute fracture visualized. No dislocation. Soft tissues: Nonspecific atrophy of bilateral psoas musculature. Vasculature: Atherosclerotic disease of aorta with no aneurysm or dissection. Lymph nodes: Unremarkable. No enlarged lymph nodes. IMPRESSION: 1. Possible mild diffuse fatty liver with tiny liver cysts. 2. Small bilateral simple renal cysts, otherwise unremarkable bilateral kidneys and urinary bladder with no stones, hydronephrosis or mass. 3. No acute appendicitis or bowel obstruction. 4. Nonspecific gallstone, remainder of the biliary system unremarkable. 5. Residual right lower lobe pneumonia with superimposed scarring versus atelectasis not excluded. Trace left-sided pleural effusion. Electronically signed by: Linda Tanner MD 06/18/23 21:15 PM
--- NOTE | 2023-06-19 04:00 | Electrocardiogram Report ---
Test Reason : Blood Pressure : / mmHG Vent. Rate : 083 BPM Atrial Rate : 083 BPM P-R Int : 176 ms QRS Dur : 086 ms QT Int : 382 ms P-R-T Axes : 077 062 061 degrees QTc Int : 448 ms Normal sinus rhythm When compared with ECG of 17-Jun-2023 11:59, No significant change Confirmed by Jamal Rowan ([id number]) on 06/19/2023 3:59:50 AM Referred By: Hamzah [facility] Confirmed By:Jamal Rowan
[2023-06-19 10:26] LABS: Basophils # (auto) 0.03 K/uL (0.00-0.20); Basophils % (auto) 0.5 %; Eosinophils # (auto) 0.17 K/uL (0.00-0.50); Hematocrit (blood only) 36.7 % (42.0-52.0); Hemoglobin 12.2 g/dl (14.0-18.0); Immature Granulocytes # (auto) 0.02 K/uL (0.01-0.20); Immature Granulocytes % (auto) 0.4 %; Lymphocytes # (auto) 1.46 K/uL (1.20-3.40); Lymphocytes % (auto) 25.8 %; Mean Corpuscular Hemoglobin 30.8 pg (25.0-34.0); Mean Corpuscular Hgb Conc 33.2 g/dL (32.0-36.0); Mean Corpuscular Volume 92.7 fL (80.0-100.0); Mean Platelet Volume 10.9 fL (9.4-12.4); Monocytes # (auto) 0.68 K/uL (0.11-0.59); Neutrophils # (auto) 3.29 K/uL (1.40-6.50); Neutrophils % (auto) 58.3 %; Platelet Count 127 K/uL (130-400); RDW Coefficient of Variation 12.9 % (11.5-14.5); RDW Standard Deviation 43.8 fL (36.4-46.3); Red Blood Count 3.96 M/uL (4.70-6.10); White Blood Count 5.65 K/ul (4.8-10.8)
[2023-06-19 10:48] LABS: BUN Creatinine Ratio 17.7 (10-20); Calcium 8.4 mg/dl (8.6-10.3); Creatinine Clr Calc Pharmacy 136.7 ml/min; Est GFR (African American) 114.1 ml/min; Est GFR (Non-African American) 98.4 ml/min; Potassium 3.8 mmol/L (3.5-5.1)
[2023-06-19] MEDS: KETOROLAC TROMETHAMINE 15 MG/ML VIAL IV PRN (15:08)
--- NOTE | 2023-06-19 16:43 | Hospitalist Progress Note ---
Date of Service June 19, 2023 Assessment & Plan (1) Sepsis: (2) UTI (urinary tract infection): (3) Chest pain: Plan: per admitting service notes with addendum: This is a 73 year old M who is incarcerated at [facility] with hx of Seizure d/o, asthma, cirrhosis of liver, hepatitis C, HLD who presents to ED 2/2 chest pain that started this morning. Sepsis UTI Patient met sepsis criteria in setting of fever and tachycardia , T max 38.2 Initially patient was hypotensive with EMS, but has been normotensive since arrival Lactic acid normal, procalcitonin elevated at 3 He received broad-spectrum IV Rocephin in ED Continue 2 g Rocephin daily Blood and urine cultures are growing gram-negative bacilli. Further identification and sensitivity have been pending Continue IVF for additional 1 L Clinically better without any fever and chills CT of the abdomen pelvis did not show any nephrolithiasis, hydronephrosis, showed a small bilateral simple renal cyst. Gallstones without any cholecystitis Repeat blood culture is pending Occipital headache No evidence of any neurological deficit on examination and no neurosymptoms Could be secondary to morphine withdrawal We will discontinue morphine and give intravenous Toradol for pain control Chest pain. CT was negative for any pulmonary embolism ACS ruled out His presenting complaints to hospital is chest pain It is reproducible, possible MSK vs Anxiety Initial troponin unremarkable, EKG without ST change Elevated D-dimer, chest CTA pending High risk for PE as he is mostly wheelchair-bound No evidence of ACS 1 PTSD Anxiety Continue escitalopram and hydroxyzine Patient states he has had inceased in anx/PTSD and he has been receiving treatment for this, he does tend to get chest pain with anxiety continue current meds Asthma no acute exac continue inhaler Hypomagnesemia mag 1.4 replace DVT ppx: SQ Lovenox Dispo: PCU FULL CODE PCP: [facility] Admission and Anticipated Discharge Date Admission Date: June 17, 2023 Subjective 06/19/2023 The patient was seen and examined in telemetry unit He has been complaining of occipital headache since admission Denies any more fever and chills Urinary symptoms Review of Systems Review of Systems: All systems reviewed and are unremarkable except as noted below Physical Exam Physical Exam: Lying in bed comfortably Constitutional: well developed, well nourished and + obese; not ill appearing Eyes: PERRL, conjunctivae normal, anicteric sclerae ENMT: external ear and nose normal, oropharynx normal Neck: trachea midline, no thyromegaly Respiratory: no respiratory distress Auscultation: lungs clear to auscultation bilaterally Cardiovascular: Rate/Rhythm: regular rate and regular rhythm; not tachycardic Heart Sounds: normal S1 and normal S2; no murmur Extremities: no edema Gastrointestinal (Abdomen): Inspection/Auscultation: normal bowel sounds; abdomen not distended Percussion/Palpation: abdomen soft; abdomen nontender Musculoskeletal: No acute arthritis involving any other joint Neurologic: normal touch/pain/proprioception and moves all extremities; no focal motor deficits Lymphatic: no cervical or axillary lymphadenopathy Results & Data Results & Data Vital Signs (Past 12 Hours) Vital Signs Temp Pulse Pulse Resp BP Pulse Ox O2 Del Method 06/19/23 15:22 71 06/19/23 15:00 36.8 C 78 20 122/62 92 Room Air 06/19/23 10:53 36.6 C 61 19 115/70 90 Room Air 06/19/23 10:41 72 06/19/23 07:25 36.4 C L 72 20 132/77 90 Room Air Laboratory Results Short CBC 06/19/23 Range/Units 09:42 WBC 5.65 (4.8-10.8) K/ul Hgb 12.2 L (14.0-18.0) g/dl Hct 36.7 L (42.0-52.0) % Plt Count 127 L (130-400) K/uL BMP 06/19/23 09:42 Sodium 136 Potassium 3.8 Chloride 109 H Carbon Dioxide 21 BUN 11 Creatinine 0.62 Glucose 173 H Calcium 8.4 L Medications Administered Current Inpatient Medications Acetaminophen (Acetaminophen 325 Mg Tab) 650 mg PO Q4H PRN PRN Reason: Pain or Fever Stop: 07/17/23 18:30 Last Admin: 06/19/23 07:57 Dose: 650 mg Al Hydrox/Mg Hydrox/Simethicone (Aluminum/Magnesium Susp 30 Ml Udc) 15 ml PO Q4H PRN PRN Reason: Dyspepsia Stop: 07/17/23 18:30 Last Admin: 06/18/23 00:42 Dose: 15 ml Enoxaparin Sodium (Enoxaparin Inj 40 Mg/0.4 Ml Syr) 40 mg SQ HS [facility] Stop: 07/17/23 20:59 Last Admin: 06/18/23 20:39 Dose: 40 mg Escitalopram Oxalate (Escitalopram Oxalate 10 Mg Tab) 5 mg PO DAILY LISBETH Stop: 07/18/23 08:59 Last Admin: 06/19/23 07:59 Dose: 5 mg Fluticasone Furoate (Fluticasone Furoate 200mcg 14 Puffs/Inhaler) 1 puffs INH DAILY LISBTEH Stop: 07/17/23 19:59 Last Admin: 06/19/23 08:00 Dose: 1 puffs Gemfibrozil (Gemfibrozil 600 Mg Tab) 600 mg PO BID LISBETH Stop: 07/17/23 20:59 Last Admin: 06/19/23 07:59 Dose: 600 mg Hydroxyzine HCl (Hydroxyzine Hcl 25 Mg Tab) 50 mg PO [facility] Stop: 07/18/23 20:59 Last Admin: 06/18/23 20:57 Dose: 50 mg Ceftriaxone Sodium (Rocephin) 2,000 mg in 50 mls @ 100 mls/hr IV Q24H LISBETH Stop: 06/28/23 16:59 Last Infusion: 06/18/23 18:14 Dose: Infused Ketorolac Tromethamine (Ketorolac Tromethamine 15 Mg/Ml Vial) 15 mg IV Q6H PRN PRN Reason: Headache or Pain Stop: 06/24/23 11:18 Last Admin: 06/19/23 15:08 Dose: 15 mg Magnesium Hydroxide (Magnesium Hydroxide Susp 30 Ml Udc) 30 ml PO Q12H PRN PRN Reason: Constipation Stop: 07/17/23 18:30 Last Admin: 06/18/23 20:40 Dose: 30 ml Montelukast Sodium (Montelukast Sodium 10 Mg Tablet) 10 mg PO [facility] Stop: 07/17/23 20:59 Last Admin: 06/18/23 20:39 Dose: 10 mg Ondansetron HCl (Ondansetron Inj 2 Mg/Ml 2 Ml Vial) 4 mg IV Q6H PRN PRN Reason: Nausea Stop: 07/17/23 18:30 Polyethylene Glycol (Polyethylene (Miralax) 17 Gm Pack) 17 gm PO DAILY PRN PRN Reason: Constipation Stop: 07/17/23 18:30 Ropinirole HCl (Ropinirole Hcl 1 Mg Tablet) 1 mg PO HS [facility]ISB[facility] Stop: 07/17/23 20:59 Last Admin: 06/18/23 20:40 Dose: Not Given Vitamin D (Cholecalciferol 25 Mcg (1000 Units) Tab) 25 mcg PO DAILY LISBETH Stop: 07/18/23 08:59 Last Admin: 06/19/23 07:58 Dose: 25 mcg (2) UTI (urinary tract infection) Hematuria presence: without hematuria Urinary tract infection type: site unspecified Qualified Code(s): N39.0 - Urinary tract infection, site not specified
[2023-06-20 06:52] LABS: Basophils # (auto) 0.03 K/uL (0.00-0.20); Basophils % (auto) 0.5 %; Eosinophils # (auto) 0.28 K/uL (0.00-0.50); Eosinophils % (auto) 4.5 %; Hematocrit (blood only) 38.1 % (42.0-52.0); Hemoglobin 13.2 g/dl (14.0-18.0); Immature Granulocytes # (auto) 0.02 K/uL (0.01-0.20); Immature Granulocytes % (auto) 0.3 %; Lymphocytes # (auto) 2.39 K/uL (1.20-3.40); Lymphocytes % (auto) 38.1 %; Mean Corpuscular Hgb Conc 34.6 g/dL (32.0-36.0); Mean Corpuscular Volume 89.4 fL (80.0-100.0); Mean Platelet Volume 11.3 fL (9.4-12.4); Monocytes # (auto) 0.92 K/uL (0.11-0.59); Monocytes % (auto) 14.7 %; Neutrophils # (auto) 2.63 K/uL (1.40-6.50); Neutrophils % (auto) 41.9 %; Platelet Count 152 K/uL (130-400); RDW Coefficient of Variation 12.8 % (11.5-14.5); RDW Standard Deviation 41.7 fL (36.4-46.3); Red Blood Count 4.26 M/uL (4.70-6.10); White Blood Count 6.27 K/ul (4.8-10.8)
[2023-06-20 07:14] LABS: BUN Creatinine Ratio 21.7 (10-20); Calcium 7.9 mg/dl (8.6-10.3); Creatinine Clr Calc Pharmacy 143.1 ml/min; Est GFR (African American) 115.6 ml/min; Est GFR (Non-African American) 99.7 ml/min; Magnesium 1.9 mg/dl (1.7-2.4); Phosphorus 2.4 mg/dl (2.5-4.9); Potassium 4.2 mmol/L (3.5-5.1)
--- NOTE | 2023-06-20 17:06 | Hospitalist Progress Note ---
Date of Service June 20, 2023 Assessment & Plan (1) Sepsis: (2) UTI (urinary tract infection): (3) Chest pain: Plan: per admitting service notes with addendum: This is a 73 year old M who is incarcerated at [facility] with hx of Seizure d/o, asthma, cirrhosis of liver, hepatitis C, HLD who presents to ED 2/2 chest pain that started this morning. Sepsis UTI Patient met sepsis criteria in setting of fever and tachycardia , T max 38.2 Initially patient was hypotensive with EMS, but has been normotensive since arrival Lactic acid normal, procalcitonin elevated at 3 He received broad-spectrum IV Rocephin in ED Continue 2 g Rocephin daily Blood and urine cultures are growing gram-negative bacilli. Further identification and sensitivity have been pending Continue IVF for additional 1 L Clinically better without any fever and chills CT of the abdomen pelvis did not show any nephrolithiasis, hydronephrosis, showed a small bilateral simple renal cyst. Gallstones without any cholecystitis Repeat blood culture is is negative Blood culture and urine culture grew ESBL Appreciate ID input and recommendation Will get ertapenem intravenously from today Occipital headache No evidence of any neurological deficit on examination and no neurosymptoms Could be secondary to morphine withdrawal We will discontinue morphine and give intravenous Toradol for pain control Will give oral magnesium Chest pain. CT was negative for any pulmonary embolism ACS ruled out His presenting complaints to hospital is chest pain It is reproducible, possible MSK vs Anxiety Initial troponin unremarkable, EKG without ST change Elevated D-dimer, chest CTA pending High risk for PE as he is mostly wheelchair-bound No evidence of ACS 1 PTSD Anxiety Continue escitalopram and hydroxyzine Patient states he has had inceased in anx/PTSD and he has been receiving treatment for this, he does tend to get chest pain with anxiety continue current meds Asthma no acute exac continue inhaler Hypomagnesemia mag 1.4 replace DVT ppx: SQ Lovenox Dispo: PCU FULL CODE PCP: [facility] Admission and Anticipated Discharge Date Admission Date: June 17, 2023 Subjective 06/19/2023 The patient was seen and examined in telemetry unit He has been complaining of occipital headache since admission Denies any more fever and chills Urinary symptoms 06/20/2023 The patient was seen and examined in telemetry unit He has been feeling much better He has been feeling better with magnesium He was started with intravenous ertapenem to cover ESBL Review of Systems Review of Systems: All systems reviewed and are unremarkable except as noted below Physical Exam Physical Exam: Lying in bed comfortably Constitutional: well developed, well nourished and + obese; not ill appearing Eyes: PERRL, conjunctivae normal, anicteric sclerae ENMT: external ear and nose normal, oropharynx normal Neck: trachea midline, no thyromegaly Respiratory: no respiratory distress Auscultation: lungs clear to auscultation bilaterally Cardiovascular: Rate/Rhythm: regular rate and regular rhythm; not tachycardic Heart Sounds: normal S1 and normal S2; no murmur Extremities: no edema Gastrointestinal (Abdomen): Inspection/Auscultation: normal bowel sounds; abd omen not distended Percussion/Palpation: abdomen soft; abdomen nontender Neurologic: normal touch/pain/proprioception and moves all extremities; no focal motor deficits Lymphatic: no cervical or axillary lymphadenopathy Results & Data Results & Data Vital Signs (Past 12 Hours) Vital Signs Temp Pulse Pulse Resp BP Pulse Ox O2 Del Method 06/20/23 15:39 36.6 C 69 18 149/71 H 91 Room Air 06/20/23 15:30 66 06/20/23 11:37 36.7 C 64 18 137/78 91 Room Air 06/20/23 09:00 Room Air 06/20/23 08:00 73 06/20/23 07:47 36.4 C L 64 18 128/71 91 Room Air Laboratory Results Short CBC 06/20/23 Range/Units 06:18 WBC 6.27 (4.8-10.8) K/ul Hgb 13.2 L (14.0-18.0) g/dl Hct 38.1 L (42.0-52.0) % Plt Count 152 (130-400) K/uL BMP 06/20/23 06:18 Sodium 138 Potassium 4.2 Chloride 110 H Carbon Dioxide 21 BUN 13 Creatinine 0.60 Glucose 107 H Calcium 7.9 L Medications Administered Current Inpatient Medications Acetaminophen (Acetaminophen 325 Mg Tab) 650 mg PO Q4H PRN PRN Reason: Pain or Fever Stop: 07/17/23 18:30 Last Admin: 06/19/23 07:57 Dose: 650 mg Al Hydrox/Mg Hydrox/Simethicone (Aluminum/Magnesium Susp 30 Ml Udc) 15 ml PO Q4H PRN PRN Reason: Dyspepsia Stop: 07/17/23 18:30 Last Admin: 06/18/23 00:42 Dose: 15 ml Enoxaparin Sodium (Enoxaparin Inj 40 Mg/0.4 Ml Syr) 40 mg SQ HS [facility] Stop: 07/17/23 20:59 Last Admin: 06/19/23 20:30 Dose: 40 mg Escitalopram Oxalate (Escitalopram Oxalate 10 Mg Tab) 5 mg PO DAILY LISBETH Stop: 07/18/23 08:59 Last Admin: 06/20/23 08:28 Dose: 5 mg Fluticasone Furoate (Fluticasone Furoate 200mcg 14 Puffs/Inhaler) 1 puffs INH DAILY LISBETH Stop: 07/17/23 19:59 Last Admin: 06/20/23 08:28 Dose: 1 puffs Gemfibrozil (Gemfibrozil 600 Mg Tab) 600 mg PO BID [facility]ISB[facility] Stop: 07/17/23 20:59 Last Admin: 06/20/23 08:28 Dose: 600 mg Hydroxyzine HCl (Hydroxyzine Hcl 25 Mg Tab) 50 mg PO HS [facility] Stop: 07/18/23 20:59 Last Admin: 06/19/23 20:30 Dose: 50 mg Ertapenem 1,000 mg/ Syringe 10 mls @ 2 mls/min IV Q24H LISBETH Stop: 07/04/23 15:59 Ketorolac Tromethamine (Ketorolac Tromethamine 15 Mg/Ml Vial) 15 mg IV Q6H PRN PRN Reason: Headache or Pain Stop: 06/24/23 11:18 Last Admin: 06/20/23 16:52 Dose: 15 mg Magnesium Hydroxide (Magnesium Hydroxide Susp 30 Ml Udc) 30 ml PO Q12H PRN PRN Reason: Constipation Stop: 07/17/23 18:30 Last Admin: 06/19/23 19:38 Dose: 30 ml Montelukast Sodium (Montelukast Sodium 10 Mg Tablet) 10 mg PO HS [facility] Stop: 07/17/23 20:59 Last Admin: 06/19/23 20:30 Dose: 10 mg Ondansetron HCl (Ondansetron Inj 2 Mg/Ml 2 Ml Vial) 4 mg IV Q6H PRN PRN Reason: Nausea Stop: 07/17/23 18:30 Polyethylene Glycol (Polyethylene (Miralax) 17 Gm Pack) 17 gm PO DAILY PRN PRN Reason: Constipation Stop: 07/17/23 18:30 Ropinirole HCl (Ropinirole Hcl 1 Mg Tablet) 1 mg PO HS [facility] Stop: 07/17/23 20:59 Last Admin: 06/19/23 21:00 Dose: Not Given Vitamin D (Cholecalciferol 25 Mcg (1000 Units) Tab) 25 mcg PO DAILY LISBETH Stop: 07/18/23 08:59 Last Admin: 06/20/23 08:28 Dose: 25 mcg (2) UTI (urinary tract infection) Hematuria presence: without hematuria Urinary tract infection type: site unspecified Qualified Code(s): N39.0 - Urinary tract infection, site not specified
--- NOTE | 2023-06-20 17:10 | Infectious Disease Consult ---
Date of Service June 20, 2023 Telehealth Information I performed this visit using a real-time telehealth connection between my location and the patients location ([facility]). After connecting through interactive tele-video, patient was identified by name and date of and/or wristband check.Patient (or authorized healthcare reimbursement representative) was informed that this was a telemedicine visit and it was being conducted confidentially over secure lines. My office door was closed and no one else was present in the room with me.Patient (or authorized healthcare reimbursement representative) provided consent to proceed with the visit, expressed an understanding of privacy and security of the telemedicine visit, and gave permission to have a hospital reimbursement representative in the room in order to assist with the visit and to conduct portions of the visit, as needed. I informed the patient (or authorized healthcare reimbursement representative) that I reviewed their record and presented the opportunity for them to ask any questions regarding the visit today. The patient agreed to participate. Assessment & Plan (1) Sepsis due to Klebsiella: Plan: 1.Start IV ertapenem monotherapy 2. Dose all antibiotics per your hospital protocol (usual dose for normal renal function is 1g q24h) 3. Repeat BCX COMMENT(S): I discussed the case and/or recommendations with the primary team. These recommendations are not final. Contact Infectious Diseases as needed for updated recommendations (use the on-call schedule to find out who is covering your facility). REVENUE MANAGEMENT: I spent a total of 60 minutes coordinating, documenting, andproviding care for this patient excluding time spent in performance ofseparately billed services. History of Present Illness History of Present Illness CLINICAL TEAM: Infectious Diseases Team 4 HISTORY OF PRESENT ILLNESS: The patient was admitted for chest pain. Workup revealed Klebsiella bacteremia/bacteruria. Allergies Allergy/AdvReac Type Severity Reaction Status Date / Time pork derived (porcine) Allergy Unknown Unknown Verified 03/30/21 13:03 Pork/Porcine Containing Allergy Unknown ON [facility] Verified 03/30/21 13:03 Products [facility] MED LIST No Known Drug Allergies Allergy Unknown Unverified 06/17/23 16:53 Home Medications Medication Instructions Recorded Confirmed Type cholecalciferol (vitamin D3) 25 1,000 unit PO DAILY 02/08/19 06/17/23 History mcg (1,000 unit) chewable tablet gemfibrozil 600 mg tablet 600 mg PO BID 02/08/19 06/17/23 History montelukast 10 mg tablet 10 mg PO HS 02/08/19 06/17/23 History (Singulair) albuterol sulfate 90 mcg/actuation 2 puff inhalation Q6H PRN 03/30/21 06/17/23 History aerosol inhaler Shortness Of Breath ciclesonide 160 mcg/actuation 2 puff inhalation BID 03/30/21 06/17/23 History aerosol inhaler (Alvesco) lidocaine-prilocaine 2.5 %-2.5 % 2.5 g topical BID 03/30/21 06/17/23 History topical cream escitalopram oxalate 5 mg tablet 5 mg PO DAILY 06/17/23 06/17/23 History hydroxyzine pamoate 50 mg capsule 50 mg PO DAILY 06/17/23 06/17/23 History ketotifen fumarate 0.025 % (0.035 1 drp ophthalmic (eye) Q8H PRN Eye 06/17/23 06/17/23 History %) eye drops (Zaditor) Irritation ropinirole 1 mg tablet 1 mg PO HS 06/17/23 06/17/23 History Patient History Medical History Back pain Hepatitis C Dyslipidemia Asthma Cirrhosis of liver Arthritis Surgical History History of biopsy (03/30/21) Full-thickness incisional wedge skin biopsy was performed at bedside Dr. Reaves 03/30/2021 Status post total knee replacement Previous back surgery Family History Mother Cancer Social History Smoking Status: Current some day smoker Tobacco Type: Cigarettes and E-cigarettes / Vaping Second Hand Exposure: No; Do You Dip or Chew Tobacco: No; Tobacco Cessation Education Requested by Patient: No Hx Alcohol Use: No Hx Substance Use: No Preferred Language: Slovak Communication Ability: Effective Car Manager Required: No Beliefs That Will Affect Care: Spiritual Current Living Situation: Other Current Living Situation Comment: [facility] Other Information That Helps Us Care for You: No Feels Safe at Home: Yes Assistive Devices: Denture - Upper, Denture - Lower, Glasses, Walker and Wheelchair Assistive Devices Comment: All left at [facility] Review of Systems As reviewed in HPI; a complete ROS was otherwise negative Physical Exam Vitals: as above (or see EMR) Exam limited due to constraints of telemedicine Gen/Constitutional: appears at stated age, NAD, nontoxic Head: AT, NC Eyes: sclera anicteric, no conjunctival injection ENT: MMM, trachea midline Card: appears to be well-perfused Resp: not tachypneic, nml effort, symmetric chest rise, no accessory muscle use Derm: no visible diaphoresis, no visible rash, no visible jaundice Results & Data Vital Signs (Past 12 Hours) Vital Signs Temp Pulse Pulse Resp BP Pulse Ox O2 Del Method 06/20/23 15:39 36.6 C 69 18 149/71 H 91 Room Air 06/20/23 15:30 66 06/20/23 11:37 36.7 C 64 18 137/78 91 Room Air 06/20/23 09:00 Room Air 06/20/23 08:00 73 06/20/23 07:47 36.4 C L 64 18 128/71 91 Room Air Laboratory Results SEE EMR Diagnostic Findings [address], [place] [address] / Director: Vince Smyth M.D. Clinical Laboratory Report Name: HANS MARTINEZ [id number] Acct: [id number] Status: ADM IN : 1950 [facility] [place] Date: 06/17/23 Age: 73 Sex: M Dis Date: Loc: Telemetry [address] [place] [address] Rm/Bed: E218-1 Spec: [id number] Collected: 06/17/23-123 Received: 06/17/23-[address]: Donaldo Mendes, DO Source: Blood OV Order: Ordered: Blood Culture Comments: Comment Default is separate sites, same time Blood culture drawn venously from Left Arm. Procedure Result Verified Site Blood Culture Aerobic Final 06/20/23 Organism 1 Klebsiella oxytoca Sens Sensitivities to Follow Blood Culture PCR Panel If viewing in EMR, results available under LAB Serology tab. Phoned positive Blood Culture Gram Stain report to MACY WOMACK on 06/18/23 at 0334 by [id number]. [place] [id number]. Kleb oxyto RX M.I.C. --- --------- Amox/Clav I 16/8 Amp/Sul R >16/8 Cefazolin R >16 Cefepime S <=2 Ceftriaxone R >2 Ciprofloxacin S <=0.25 Ertapenem S <=0.5 Gentamicin S <=4 Levofloxacin S <=0.5 Meropenem S <=1 Tobramycin S <=4 Trimeth/Sulfa S <=2/38 Pip/Tazo R >64 S = SENSITIVE I = INTERMEDIATE R = RESISTANT Blood Culture Anaerobic Final 06/20/23 Organism 1 Klebsiella oxytoca Sens Sensitivities to Follow Name: HANS MARTINEZ [id number] : 1950 PAGE 1 Printed: 06/20/23 [id number] END OF REPORT
[2023-06-20] MEDS: ERTAPENEM SODIUM 1,000 MG in SYRINGE 0 ML IV SCH (17:32)
[2023-06-20] MEDS: MAGNESIUM OXIDE 400 MG TAB PO SCH (20:40)
--- NOTE | 2023-06-21 15:37 | Hospitalist Progress Note ---
Date of Service June 21, 2023 Assessment & Plan (1) Sepsis: (2) UTI (urinary tract infection): (3) Chest pain: Plan: per admitting service notes with addendum: This is a 73 year old M who is incarcerated at [facility] with hx of Seizure d/o, asthma, cirrhosis of liver, hepatitis C, HLD who presents to ED 2/2 chest pain that started this morning. Sepsis UTI Patient met sepsis criteria in setting of fever and tachycardia , T max 38.2 Initially patient was hypotensive with EMS, but has been normotensive since arrival Lactic acid normal, procalcitonin elevated at 3 He received broad-spectrum IV Rocephin in ED Continue 2 g Rocephin daily Blood and urine cultures are growing gram-negative bacilli. Further identification and sensitivity have been pending Continue IVF for additional 1 L Clinically better without any fever and chills CT of the abdomen pelvis did not show any nephrolithiasis, hydronephrosis, showed a small bilateral simple renal cyst. Gallstones without any cholecystitis Repeat blood culture is is negative Blood culture and urine culture grew ESBL Appreciate ID input and recommendation Will get ertapenem intravenously from today Repeat blood cultures have been negative Discussed with the ID specialist Will transition to oral Cipro tomorrow and discharged on oral Cipro for next 10 days Strongly advised to drink more fluid to prevent an attack of UTI in future Occipital headache No evidence of any neurological deficit on examination and no neurosymptoms Could be secondary to morphine withdrawal We will discontinue morphine and give intravenous Toradol for pain control Will give oral magnesium Denies any more headache Chest pain. CT was negative for any pulmonary embolism ACS ruled out His presenting complaints to hospital is chest pain It is reproducible, possible MSK vs Anxiety Initial troponin unremarkable, EKG without ST change Elevated D-dimer, chest CTA pending High risk for PE as he is mostly wheelchair-bound No evidence of ACS 1 PTSD Anxiety Continue escitalopram and hydroxyzine Patient states he has had inceased in anx/PTSD and he has been receiving treatment for this, he does tend to get chest pain with anxiety continue current meds Asthma no acute exac continue inhaler Hypomagnesemia mag 1.4 replace DVT ppx: SQ Lovenox Dispo: PCU FULL CODE PCP: [facility] Admission and Anticipated Discharge Date Admission Date: June 17, 2023 Subjective 06/19/2023 The patient was seen and examined in telemetry unit He has been complaining of occipital headache since admission Denies any more fever and chills Urinary symptoms 06/20/2023 The patient was seen and examined in telemetry unit He has been feeling much better He has been feeling better with magnesium He was started with intravenous ertapenem to cover ESBL 06/21/2023 The patient was seen and examined in telemetry unit He has been feeling much better and denies any significant symptoms Has been smiling with improvement of his condition Was seen by ID specialist yesterday Review of Systems Review of Systems: All systems reviewed and are unremarkable except as noted below Physical Exam Physical Exam: Lying in bed comfortably Constitutional: well developed, well nourished and + obese; not ill appearing Eyes: PERRL, conjunctivae normal, anicteric sclerae ENMT: external ear and nose normal, oropharynx normal Neck: trachea midline, no thyromegaly Respiratory: no respiratory distress Auscultation: lungs clear to auscultation bilaterally Cardiovascular: Rate/Rhythm: regular rate and regular rhythm; not tachycardic Heart Sounds: normal S1 and normal S2; no murmur Extremities: no edema Gastrointestinal (Abdomen): Inspection/Auscultation: normal bowel sounds; abdomen not distended Percussion/Palpation: abdomen soft; abdomen nontender Musculoskeletal: No acute arthritis involving any of the joint Neurologic: normal touch/pain/proprioception and moves all extremities; no focal motor deficits Lymphatic: no cervical or axillary lymphadenopathy Results & Data Results & Data Vital Signs (Past 12 Hours) Vital Signs Temp Pulse Pulse Resp BP Pulse Ox O2 Del Method 06/21/23 15:28 69 06/21/23 15:13 36.5 C 61 18 135/82 91 Room Air 06/21/23 11:01 36.3 C L 68 18 118/69 92 Room Air 06/21/23 09:55 Room Air 06/21/23 09:54 66 06/21/23 08:13 36.2 C L 60 16 137/84 91 Room Air Medications Administered Current Inpatient Medications Acetaminophen (Acetaminophen 325 Mg Tab) 650 mg PO Q4H PRN PRN Reason: Pain or Fever Stop: 07/17/23 18:30 Last Admin: 06/21/23 09:07 Dose: 650 mg Al Hydrox/Mg Hydrox/Simethicone (Aluminum/Magnesium Susp 30 Ml Udc) 15 ml PO Q4H PRN PRN Reason: Dyspepsia Stop: 07/17/23 18:30 Last Admin: 06/18/23 00:42 Dose: 15 ml Enoxaparin Sodium (Enoxaparin Inj 40 Mg/0.4 Ml Syr) 40 mg SQ HS LISBETH Stop: 07/17/23 20:59 Last Admin: 06/20/23 20:39 Dose: 40 mg Escitalopram Oxalate (Escitalopram Oxalate 10 Mg Tab) 5 mg PO DAILY LISBETH Stop: 07/18/23 08:59 Last Admin: 06/21/23 09:03 Dose: 5 mg Fluticasone Furoate (Fluticasone Furoate 200mcg 14 Puffs/Inhaler) 1 puffs INH DAILY LISBETH Stop: 07/17/23 19:59 Last Admin: 06/21/23 09:03 Dose: 1 puffs Gemfibrozil (Gemfibrozil 600 Mg Tab) 600 mg PO BID LISBETH Stop: 07/17/23 20:59 Last Admin: 06/21/23 09:03 Dose: 600 mg Hydroxyzine HCl (Hydroxyzine Hcl 25 Mg Tab) 50 mg PO HS LISBETH Stop: 07/18/23 20:59 Last Admin: 06/20/23 20:40 Dose: 50 mg Ertapenem 1,000 mg/ Syringe 10 mls @ 2 mls/min IV Q24H LISBETH Stop: 07/04/23 15:59 Last Admin: 06/20/23 17:32 Dose: 2 mls/min Ketorolac Tromethamine (Ketorolac Tromethamine 15 Mg/Ml Vial) 15 mg IV Q6H PRN PRN Reason: Headache or Pain Stop: 06/24/23 11:18 Last Admin: 06/21/23 14:25 Dose: 15 mg Magnesium Hydroxide (Magnesium Hydroxide Susp 30 Ml Udc) 30 ml PO Q12H PRN PRN Reason: Constipation Stop: 07/17/23 18:30 Last Admin: 06/19/23 19:38 Dose: 30 ml Magnesium Oxide (Magnesium Oxide 400 Mg Tab) 400 mg PO BID LISBETH Stop: 07/20/23 20:59 Last Admin: 06/21/23 09:03 Dose: 400 mg Montelukast Sodium (Montelukast Sodium 10 Mg Tablet) 10 mg PO HS LISBETH Stop: 07/17/23 20:59 Last Admin: 06/20/23 20:40 Dose: 10 mg Ondansetron HCl (Ondansetron Inj 2 Mg/Ml 2 Ml Vial) 4 mg IV Q6H PRN PRN Reason: Nausea Stop: 07/17/23 18:30 Polyethylene Glycol (Polyethylene (Miralax) 17 Gm Pack) 17 gm PO DAILY PRN PRN Reason: Constipation Stop: 07/17/23 18:30 Ropinirole HCl (Ropinirole Hcl 1 Mg Tablet) 1 mg PO HS LISBETH Stop: 07/17/23 20:59 Last Admin: 06/20/23 20:44 Dose: Not Given Vitamin D (Cholecalciferol 25 Mcg (1000 Units) Tab) 25 mcg PO DAILY LISBETH Stop: 07/18/23 08:59 Last Admin: 06/21/23 09:03 Dose: 25 mcg (2) UTI (urinary tract infection) Hematuria presence: without hematuria Urinary tract infection type: site unspecified Qualified Code(s): N39.0 - Urinary tract infection, site not specified
[2023-06-22 10:08] LABS: Basophils # (auto) 0.06 K/uL (0.00-0.20); Basophils % (auto) 0.9 %; Eosinophils # (auto) 0.27 K/uL (0.00-0.50); Hematocrit (blood only) 41.9 % (42.0-52.0); Hemoglobin 14.1 g/dl (14.0-18.0); Immature Granulocytes # (auto) 0.09 K/uL (0.01-0.20); Immature Granulocytes % (auto) 1.3 %; Lymphocytes # (auto) 2.67 K/uL (1.20-3.40); Lymphocytes % (auto) 39.6 %; Mean Corpuscular Hemoglobin 30.5 pg (25.0-34.0); Mean Corpuscular Hgb Conc 33.7 g/dL (32.0-36.0); Mean Corpuscular Volume 90.7 fL (80.0-100.0); Mean Platelet Volume 10.6 fL (9.4-12.4); Monocytes # (auto) 0.71 K/uL (0.11-0.59); Monocytes % (auto) 10.5 %; Neutrophils # (auto) 2.94 K/uL (1.40-6.50); Neutrophils % (auto) 43.7 %; Platelet Count 204 K/uL (130-400); RDW Coefficient of Variation 12.7 % (11.5-14.5); Red Blood Count 4.62 M/uL (4.70-6.10); White Blood Count 6.74 K/ul (4.8-10.8)
[2023-06-22 10:18] LABS: Albumin Level 3.8 gm/dl (3.4-5.0); BUN Creatinine Ratio 26.2 (10-20); Bilirubin Direct 0.1 mg/dl (0-0.2); Bilirubin,Total 0.4 mg/dl (0.2-1.0); C Reactive Protein 1.95 mg/dl (0-0.5); Calcium 9.2 mg/dl (8.6-10.3); Creatinine Clr Calc Pharmacy 131.6 ml/min; Est GFR (African American) 111.9 ml/min; Est GFR (Non-African American) 96.5 ml/min; Potassium 4.4 mmol/L (3.5-5.1); Total Protein 7.5 gm/dl (6.0-8.3)
[2023-06-22] MEDS: CIPROFLOXACIN 250 MG TAB PO SCH (11:54)
--- NOTE | 2023-06-22 12:18 | Hospitalist Progress Note ---
Date of Service June 22, 2023 Assessment & Plan (1) Sepsis: (2) UTI (urinary tract infection): (3) Chest pain: Plan: per admitting service notes with addendum: This is a 73 year old M who is incarcerated at [facility] with hx of Seizure d/o, asthma, cirrhosis of liver, hepatitis C, HLD who presents to ED 2/2 chest pain that started this morning. Sepsis UTI Patient met sepsis criteria in setting of fever and tachycardia , T max 38.2 Initially patient was hypotensive with EMS, but has been normotensive since arrival Lactic acid normal, procalcitonin elevated at 3 He received broad-spectrum IV Rocephin in ED Continue 2 g Rocephin daily Blood and urine cultures are growing gram-negative bacilli. Further identification and sensitivity have been pending Continue IVF for additional 1 L Clinically better without any fever and chills CT of the abdomen pelvis did not show any nephrolithiasis, hydronephrosis, showed a small bilateral simple renal cyst. Gallstones without any cholecystitis Repeat blood culture is is negative Blood culture and urine culture grew ESBL Appreciate ID input and recommendation Will get ertapenem intravenously from today Repeat blood cultures have been negative Discussed with the ID specialist Will transition to oral Cipro tomorrow and discharged on oral Cipro for next 10 days Strongly advised to drink more fluid to prevent an attack of UTI in future Started on oral Cipro 750 mg twice daily-will be continued for 7 more days Again he was advised to drink more fluid Occipital headache No evidence of any neurological deficit on examination and no neurosymptoms Could be secondary to morphine withdrawal We will discontinue morphine and give intravenous Toradol for pain control Will give oral magnesium Denies any more headache Chest pain. CT was negative for any pulmonary embolism ACS ruled out His presenting complaints to hospital is chest pain It is reproducible, possible MSK vs Anxiety Initial troponin unremarkable, EKG without ST change Elevated D-dimer, chest CTA pending High risk for PE as he is mostly wheelchair-bound No evidence of ACS PTSD Anxiety Continue escitalopram and hydroxyzine Patient states he has had inceased in anx/PTSD and he has been receiving treatment for this, he does tend to get chest pain with anxiety continue current meds No acute symptoms of anxiety and/or delirium Asthma no acute exac continue inhaler Hypomagnesemia mag 1.4 replace Will give oral magnesium DVT ppx: SQ Lovenox Dispo: PCU FULL CODE PCP: Hamzah SCI Will be discharged to [facility] this afternoon Admission and Anticipated Discharge Date Admission Date: June 17, 2023 Subjective 06/19/2023 The patient was seen and examined in telemetry unit He has been complaining of occipital headache since admission Denies any more fever and chills Urinary symptoms 06/20/2023 The patient was seen and examined in telemetry unit He has been feeling much better He has been feeling better with magnesium He was started with intravenous ertapenem to cover ESBL 06/21/2023 The patient was seen and examined in telemetry unit He has been feeling much better and denies any significant symptoms Has been smiling with improvement of his condition Was seen by ID specialist yesterday 06/22/2023 The patient was seen and examined in telemetry unit He has been feeling much better Denies any significant symptoms No fever and no chills, no abdominal pain nausea and/or vomiting Review of Systems Review of Systems: All systems reviewed and are unremarkable except as noted below Physical Exam Physical Exam: Lying in bed comfortably Constitutional: well developed, well nourished and + obese; not ill appearing Eyes: PERRL, conjunctivae normal, anicteric sclerae ENMT: external ear and nose normal, oropharynx normal Neck: trachea midline, no thyromegaly Respiratory: no respiratory distress Auscultation: lungs clear to auscultation bilaterally Cardiovascular: Rate/Rhythm: regular rate and regular rhythm; not tachycardic Heart Sounds: normal S1 and normal S2; no murmur Extremities: no edema Gastrointestinal (Abdomen): Inspection/Auscultation: normal bowel sounds; abdomen not distended Percussion/Palpation: abdomen soft; abdomen nontender Musculoskeletal: No acute arthritis involving any of the joint Neurologic: normal touch/pain/proprioception and moves all extremities; no focal motor deficits Lymphatic: no cervical or axillary lymphadenopathy Results & Data Results & Data Vital Signs (Past 12 Hours) Vital Signs Temp Pulse Pulse Resp BP Pulse Ox O2 Del Method 06/22/23 10:45 36.7 C 73 17 118/73 92 Room Air 06/22/23 09:03 Room Air 06/22/23 07:09 59 L 06/22/23 07:07 36.7 C 64 18 115/71 90 Room Air 06/22/23 03:21 36.8 C 63 18 115/71 92 Room Air Laboratory Results Short CBC 06/22/23 Range/Units 09:42 WBC 6.74 (4.8-10.8) K/ul Hgb 14.1 (14.0-18.0) g/dl Hct 41.9 L (42.0-52.0) % Plt Count 204 (130-400) K/uL BMP 06/22/23 09:42 Sodium 135 L Potassium 4.4 Chloride 106 Carbon Dioxide 23 BUN 17 Creatinine 0.65 Glucose 118 H Calcium 9.2 Liver Function 06/22/23 Range/Units 09:42 Total Bilirubin 0.4 (0.2-1.0) mg/dl Direct Bilirubin 0.1 (0-0.2) mg/dl AST 27 (13-39) U/L ALT 37 (7-52) U/L Alkaline Phosphatase 34 (34-104) U/L Albumin 3.8 (3.4-5.0) gm/dl Medications Administered Current Inpatient Medications Acetaminophen (Acetaminophen 325 Mg Tab) 650 mg PO Q4H PRN PRN Reason: Pain or Fever Stop: 07/17/23 18:30 Last Admin: 06/21/23 09:07 Dose: 650 mg Al Hydrox/Mg Hydrox/Simethicone (Aluminum/Magnesium Susp 30 Ml Udc) 15 ml PO Q4H PRN PRN Reason: Dyspepsia Stop: 07/17/23 18:30 Last Admin: 06/18/23 00:42 Dose: 15 ml Ciprofloxacin (Ciprofloxacin 250 Mg Tab) 750 mg PO Q12H LISBETH; Protocol Stop: 07/06/23 09:59 Last Admin: 06/22/23 11:54 Dose: 750 mg Enoxaparin Sodium (Enoxaparin Inj 40 Mg/0.4 Ml Syr) 40 mg SQ HS LISBETH Stop: 07/17/23 20:59 Last Admin: 06/21/23 20:26 Dose: 40 mg Escitalopram Oxalate (Escitalopram Oxalate 10 Mg Tab) 5 mg PO DAILY LISBETH Stop: 07/18/23 08:59 Last Admin: 06/22/23 08:46 Dose: 5 mg Fluticasone Furoate (Fluticasone Furoate 200mcg 14 Puffs/Inhaler) 1 puffs INH DAILY LISBETH Stop: 07/17/23 19:59 Last Admin: 06/22/23 08:46 Dose: 1 puffs Gemfibrozil (Gemfibrozil 600 Mg Tab) 600 mg PO BID LISBETH Stop: 07/17/23 20:59 Last Admin: 06/22/23 08:46 Dose: 600 mg Hydroxyzine HCl (Hydroxyzine Hcl 25 Mg Tab) 50 mg PO HS LISBETH Stop: 07/18/23 20:59 Last Admin: 06/21/23 20:27 Dose: 50 mg Ketorolac Tromethamine (Ketorolac Tromethamine 15 Mg/Ml Vial) 15 mg IV Q6H PRN PRN Reason: Headache or Pain Stop: 06/24/23 11:18 Last Admin: 06/21/23 14:25 Dose: 15 mg Magnesium Hydroxide (Magnesium Hydroxide Susp 30 Ml Udc) 30 ml PO Q12H PRN PRN Reason: Constipation Stop: 07/17/23 18:30 Last Admin: 06/19/23 19:38 Dose: 30 ml Magnesium Oxide (Magnesium Oxide 400 Mg Tab) 400 mg PO BID LISBETH Stop: 07/20/23 20:59 Last Admin: 06/22/23 08:46 Dose: 400 mg Montelukast Sodium (Montelukast Sodium 10 Mg Tablet) 10 mg PO [facility] Stop: 07/17/23 20:59 Last Admin: 06/21/23 20:27 Dose: 10 mg Ondansetron HCl (Ondansetron Inj 2 Mg/Ml 2 Ml Vial) 4 mg IV Q6H PRN PRN Reason: Nausea Stop: 07/17/23 18:30 Polyethylene Glycol (Polyethylene (Miralax) 17 Gm Pack) 17 gm PO DAILY PRN PRN Reason: Constipation Stop: 07/17/23 18:30 Ropinirole HCl (Ropinirole Hcl 1 Mg Tablet) 1 mg PO [facility] Stop: 07/17/23 20:59 Last Admin: 06/21/23 20:25 Dose: Not Given Vitamin D (Cholecalciferol 25 Mcg (1000 Units) Tab) 25 mcg PO DAILY LISBETH Stop: 07/18/23 08:59 Last Admin: 06/22/23 08:46 Dose: 25 mcg (2) UTI (urinary tract infection) Hematuria presence: without hematuria Urinary tract infection type: site unspecified Qualified Code(s): N39.0 - Urinary tract infection, site not specified
--- NOTE | 2023-06-23 07:23 | Discharge Summary ---
Date of Service June 22, 2023 Admission HPI Per Admitting Provider This is a 73 year old M who is incarcerated at [facility] with hx of Seizure d/o, asthma, cirrhosis of liver, hepatitis C, HLD who presents to ED 2/2 chest pain that started this morning. His pain is substernal, nonradiating, worse with inspiration and made better with resting. He has hx of anxiety/PTSD which is currently much worse and he is being treated for this in the facility and he does get chest pain with that. He feels this is a different kind of chest pain. He also c/o feeling chilled and aches all over this morning. He also complains of increased urinary frequency and urgency. He denies any documented fever, URI symptoms, cough, hemoptysis, nausea, vomiting, abdominal pain, hematuria, melena or hematochezia, dysuria. He does state that he had a UTI approximately 3 years ago and at that time he had dysuria and urgency. He denied any chest pain with this. His appetite has otherwise been stable. According to ED provider patient was hypotensive upon EMS arrival. He was resuscitated with fluid boluses. Upon my evaluation he was hemodynamically stable. He did meet sepsis criteria secondary to fever and tachycardia. Blood and urine cultures were obtained. He did receive IV fluids and IV vancomycin. He did have elevated D-dimer and therefore CTA was ordered. Admission Exam Per Admitting Provider Physical Exam: Constitutional: WD/WN, Male, vitals as above, NAD, sitting up in bed, pleasant, conversing easily Head: Normocephalic, Atraumatic Eyes: PERRL, conjunctivae normal, anicteric sclerae ENMT: external ear and nose normal, oropharynx normal Neck: trachea midline, no thyromegaly normal visual inspection Respiratory: normal respiratory effort, lungs clear to auscultation, no wheeze, rales, rhonchi. Normal insp/exp effort, no accessory muscle use Cardiovascular: RRR, no murmur, no edema Vessels: no JVD or carotid bruit Chest: normal inspection of chest Abdomen: normal bowel sounds, soft, nontender, no hepatosplenomegaly Musculoskeletal: no cyanosis or clubbing, extremities motor strength 5/5 Skin: no rashes, warm and dry normal turgor Neurologic: PERRL, EOMI, accommodation nl, no face palsy, no dysarthria CN's II-XI intact bilaterally and moves all extremities Psychiatric: A+Ox3, euthymic affect Lymphatic: no cervical or axillary lymphadenopathy : deferred Principal Diagnosis Sepsis secondary to Klebsiella oxytoca bacteremia, complicated UTI Discharge Exam Lying in bed comfortably Constitutional well developed, well nourished and + obese; not ill appearing Eyes PERRL, conjunctivae normal, anicteric sclerae ENMT external ear and nose normal, oropharynx normal Neck trachea midline, no thyromegaly Respiratory no respiratory distress Auscultation: lungs clear to auscultation bilaterally Cardiovascular Rate/Rhythm: regular rate and regular rhythm; not tachycardic Heart Sounds: normal S1 and normal S2; no murmur Extremities: no edema Gastrointestinal (Abdomen) Inspection/Auscultation: normal bowel sounds; abdomen not distended Percussion/Palpation: abdomen soft; abdomen nontender Neurologic normal touch/pain/proprioception and moves all extremities; no focal motor deficits Lymphatic no cervical or axillary lymphadenopathy Discharge Data Allergies Allergy/AdvReac Type Severity Reaction Status Date / Time pork derived (porcine) Allergy Unknown Unknown Verified 03/30/21 13:03 Pork/Porcine Containing Allergy Unknown ON SCI Verified 03/30/21 13:03 Products [facility] MED LIST No Known Drug Allergies Allergy Unknown Unverified 06/17/23 16:53 Consultations 06/17/23 15:06 ED Decision to Admit Stat 06/20/23 08:20 Consult Infectious Diseases Routine Ordered Studies 06/17/23 13:52 CT angio chest PE protocol Stat 06/18/23 18:22 CT abd pelvis wo con Routine Hospital Course (1) Sepsis: (2) UTI (urinary tract infection): (3) Chest pain: per admitting service notes with addendum: This is a 73 year old M who is incarcerated at [facility] with hx of Seizure d/o, asthma, cirrhosis of liver, hepatitis C, HLD who presents to ED 2/2 chest pain that started this morning. Sepsis UTI Patient met sepsis criteria in setting of fever and tachycardia , T max 38.2 Initially patient was hypotensive with EMS, but has been normotensive since arrival Lactic acid normal, procalcitonin elevated at 3 He received broad-spectrum IV Rocephin in ED Continue 2 g Rocephin daily Blood and urine cultures are growing gram-negative bacilli. Further identification and sensitivity have been pending Continue IVF for additional 1 L Clinically better without any fever and chills CT of the abdomen pelvis did not show any nephrolithiasis, hydronephrosis, showed a small bilateral simple renal cyst. Gallstones without any cholecystitis Repeat blood culture is is negative Blood culture and urine culture grew ESBL Appreciate ID input and recommendation Will get ertapenem intravenously from today Repeat blood cultures have been negative Discussed with the ID specialist Will transition to oral Cipro tomorrow and discharged on oral Cipro for next 10 days Strongly advised to drink more fluid to prevent an attack of UTI in future Started on oral Cipro 750 mg twice daily-will be continued for 7 more days Again he was advised to drink more fluid Occipital headache No evidence of any neurological deficit on examination and no neurosymptoms Could be secondary to morphine withdrawal We will discontinue morphine and give intravenous Toradol for pain control Will give oral magnesium Denies any more headache Chest pain. CT was negative for any pulmonary embolism ACS ruled out His presenting complaints to hospital is chest pain It is reproducible, possible MSK vs Anxiety Initial troponin unremarkable, EKG without ST change Elevated D-dimer, chest CTA pending High risk for PE as he is mostly wheelchair-bound No evidence of ACS PTSD Anxiety Continue escitalopram and hydroxyzine Patient states he has had inceased in anx/PTSD and he has been receiving treatment for this, he does tend to get chest pain with anxiety continue current meds No acute symptoms of anxiety and/or delirium Asthma no acute exac continue inhaler Hypomagnesemia mag 1.4 replace Will give oral magnesium DVT ppx: SQ Lovenox Dispo: PCU FULL CODE PCP: Hamzah SCI Will be discharged to [facility] this afternoon Total Time Total Time Spent Total Time Spent (In Minutes): 40 minutes Discharge Plan Discharge Items [facility] Disposition[facility] Reason For Visit: SEPSIS, UTI Discharge Diagnosis: Sepsis secondary to Klebsiella oxytoca bacteremia, complicated UTI Condition on Discharge: Good Activity: Resume your previous activity Non-emergency contact: Primary Care Provider Call non-emergency contact if: you have any medication questions and your symptoms worsen Follow-up/Referrals: Hamzah BACK [Primary Care Provider] - Diet: Regular Addtl Attending Provider Instructions: Take precautions to avoid falls Please finish the course of antibiotic as advised Strongly advised to hold of hydroxyzine for the next 7 days, until antibiotic course is finished to avoid QT prolongation. Drink more fluid Can try ibuprofen 600 mg 3 times daily with food as needed for headache Pending Studies at Discharge: No Stand-Alone Forms: My [facility] Skilled Items Patient informed of condition?: Yes Discharge Level of Care: Other Communicable Disease: No Discharge Prognosis: Stable Lines: None Urinary Catheter: No Medications and DC Order Prescriptions: New ciprofloxacin HCl 250 mg Tablet 750 mg PO Q12H Qty: 14 0RF magnesium oxide 400 mg (241.3 mg magnesium) Tablet 400 mg PO BID Qty: 60 0RF Continued albuterol sulfate 90 mcg/actuation HFA aerosol inhaler 2 puff inhalation Q6H PRN (Reason: Shortness Of Breath) lidocaine-prilocaine 2.5-2.5 % cream 2.5 g topical BID Alvesco 160 mcg/actuation HFA aerosol inhaler 2 puff inhalation BID gemfibrozil 600 mg Tablet 600 mg PO BID montelukast [Singulair] 10 mg Tablet 10 mg PO HS cholecalciferol (vitamin D3) 1,000 unit Tablet,Chewable 1,000 unit PO DAILY escitalopram oxalate 5 mg Tablet 5 mg PO DAILY ropinirole 1 mg Tablet 1 mg PO HS Rx Instructions: administer 1-3 hours before bedtime ketotifen fumarate [Zaditor] 0.025 % (0.035 %) Drops 1 drp OPHTHALMIC (EYE) Q8H PRN (Reason: Eye Irritation) Rx Instructions: do not exceed 2 doses in a 24 hour period hydroxyzine pamoate 50 mg Capsule 50 mg PO DAILY Discharge Orders: Discharge Order (Routine); Ordered 06/22/23 Ordered By: Noemi Hernandez Admission Data Admit Date/Time: 06/17/23 16:00 Attending Provider: Noemi Hernandez Admit Provider: Iman Fuentes Primary Care Provider: Hamzah BACK Other Providers: Iman Fuentes; Shade Crouch; Yoseph Piña; Celio Foster I.; Mariano Sherman II; Rhonda Wheeler; José Miguel Sheffield; Francois Wellington; Christopher Zee; Mike Rowell Other Interventions: Discharge Summary Assessment (RN) Last Done: 06/22/23 13:10
== END 2023-06-22 17:06 | DRG 872 ==
LOC: ED 11:52 → SUATTDRO 16:00 → 2S 16:00